=== PATIENT | female | born 1970 | race Caucasian/White ===

== ENCOUNTER 2022-05-30 08:44 | Outpatient (CLI) | payer OTHER, SELFPAY ==
[2022-05-30 11:32] LABS: Albumin* 4.7 g/dL (3.3-5.0); Chloride* 105 mmol/L (96-114); Sodium* 138 mmol/L (135-149)
[2022-05-30 11:33] LABS: Potassium* 4.4 mmol/L (3.6-5.1)
[2022-05-30 11:35] LABS: Alanine Aminotransferase* 16 U/L (4-35); Alkaline Phosphatase* 48 U/L (40-150); Aspartate Amino Transferase* 20 U/L (12-35); Bilirubin Total* 0.6 mg/dL (0.1-1.5); Blood Urea Nitrogen* 13 mg/dL (7-30); Carbon Dioxide* 25 mmol/L (20-32); Creatinine* 0.5 mg/dL (0.5-1.5); Estimated Glomerular Filt Rate 113 ml/min; Glucose* 87 mg/dL (60-115); Total Protein* 7.1 g/dL (6.0-8.3)
[2022-05-30 11:36] LABS: Calcium* 9.3 mg/dL (8.4-10.6)
[2022-05-30 12:08] LABS: Vitamin B12* 243 pg/mL (243-894)
[2022-05-30 12:16] LABS: Vitamin D 25 Hydroxy* 25 ng/mL (30-80)
== END 2022-05-30 08:45 | disposition home or self-care (01) ==
PROVIDERS: PCP Obstetrics & Gynecology; Visit Provider Obstetrics & Gynecology
DX: Z13.21 Encounter for screening for nutritional disorder (principal); Z13.228 Encounter for screening for other metabolic disorders; Z13.0 Encounter for screening for diseases of the blood and blood-forming organs and certain disorders involving the immune mechanism
CPT/HCPCS: 80053; 82306; 82607

== ENCOUNTER 2022-08-05 14:39 | Outpatient (CLI) | payer OTHER, SELFPAY ==
--- NOTE | 2022-08-05 14:40 | CRLHL7_ITS ---
For Patients: As a result of the Century Cures Act, medical imaging exams and procedure reports are released immediately into your electronic medical record. You may view this report before your referring provider. If you have questions, please contact your health care provider. BILATERAL SCREENING MAMMOGRAM WITH COMPUTER-AIDED DETECTION TECHNIQUE: CC and MLO views were obtained. These mammographic images have been obtained using full-field digital technique. These mammographic images were interpreted with the benefit of computer-aided detection. COMPARISON FILM: 07/22/21, 06/30/20, 06/10/19. FINDINGS: The breasts are heterogeneously dense, which may obscure small masses IMPRESSION: There is no radiographic evidence for malignancy. ASSESSMENT: BI-RADS Category 1: Negative RECOMMENDATION: Routine screening mammogram in 1 year. A lay language report of this examination will be provided to the patient. Adam Tenorio M.D. Diagnostic Radiologist [email or web address] Transcribed: 1:39 p.phani rosario/Dictated by: Adam Tenorio MD @ 08/08/2022 9:11:00 AM (Electronically Signed)
== END 2022-08-05 14:40 | disposition home or self-care (01) ==
LOC: MAMMO 14:41
PROVIDERS: PCP Obstetrics & Gynecology; Visit Provider Obstetrics & Gynecology
DX: Z12.31 Encounter for screening mammogram for malignant neoplasm of breast (principal); R92.2 Inconclusive mammogram
CPT/HCPCS: 77067

== ENCOUNTER 2022-08-08 12:17 | Day surgery (SDC) | payer OTHER, SELFPAY ==
[2022-08-08] MEDS: LACTATED RINGERS 1000 ML 1,000 ML 100 ML IV (12:40)
[2022-08-08] MEDS: SODIUM CHLORIDE 0.9 % (FLUSH) 10 ML SYRINGE IVF (12:40)
[2022-08-08 12:46] VITALS: BP 144/81; PULSE 85; RESP 16; TEMP 36.6; O2SAT 100; BMI 21.9
--- NOTE | 2022-08-08 12:50 | SUR.PREOP ---
Patient provided home covid negative results to RN.
--- NOTE | 2022-08-08 13:30 | CRLHL7_ITS ---
For Patients: As a result of the Century Cures Act, medical imaging exams and procedure reports are released immediately into your electronic medical record. You may view this report before your referring provider. If you have questions, please contact your health care provider. Indication: left Cheilectomy 1st MPJ Technique: Two fluoroscopic images of the left foot. Fluoroscopic time 7.5 seconds. IMPRESSION: Fluoroscopic guidance for chilectomy. Dictated by Adam Tenorio MD @ 08/08/2022 3:55:19 PM (Electronically Signed)
[2022-08-08] MEDS: CEFAZOLIN 1 GM inj IVP (13:36)
[2022-08-08] MEDS: BUPIVACAINE 0.5% 30 ML INJECTION (13:45)
[2022-08-08 14:41] VITALS: BP 105/67; PULSE 81; RESP 14; TEMP 36.8; O2SAT 99
--- NOTE | 2022-08-08 14:43 | W.ANESCHARGE ---
Anesthesia Charges Start Date/Time Anesthesia Start Date: 08/08/22 Anesthesia Start Time: 13:33 Stop Date/Time Anesthesia Stop Date: 08/08/22 Anesthesia Stop Time: 14:44 Summary Emergency: No
[2022-08-08 14:45] VITALS: BP 110/68; PULSE 82; RESP 14; O2SAT 100
--- NOTE | 2022-08-08 14:45 | W.ANESCHARGE ---
Anesthesia Charges Start Date/Time Anesthesia Start Date: 08/08/22 Anesthesia Start Time: 13:33 Stop Date/Time Anesthesia Stop Date: 08/08/22 Anesthesia Stop Time: 14:44 Summary Emergency: No
[2022-08-08 15:00] VITALS: BP 127/81; PULSE 76; RESP 16; O2SAT 99
[2022-08-08 15:15] VITALS: BP 140/85; PULSE 75; RESP 16; O2SAT 100
--- NOTE | 2022-08-08 15:19 | PM.GSPRC ---
Operative Note Date of procedure: 08/08/22 Pre-op diagnosis: Hallux rigidus left Post-op diagnosis: Hallux rigidus left Type of Procedure: Cheilectomy 1st MPJ left Indications: Patient is in clinic for ongoing 1st MPJ pain. She has underlying arthritic changes throughout the joint. She has failed outpatient conservative care and wishes to proceed with surgical intervention. I reviewed the procedure, recovery, expectations and potential complications. These include but are not limited to: Poor wound healing, infection, nerve injury, potentially future surgery, continued pain, swelling, stiffness, deep venous thrombosis, pulmonary embolism and possible . She understands risks written consent was obtained. Procedure Description: After discussing the risks and benefits of the procedure, the patient signed informed consent.? The operative site was marked and the patient was brought to the operating room and placed on the operating table in supine position.? Care was taken to pad the patient's pressure points.?? The patient was then given sedation by anesthesia.?? The operative site was then prepped and draped in the usual sterile fashion.? A time-out was then performed. The left foot was exsanguinated. Ankle tourniquet was inflated to 250 mm Hg. Dorsomedial incision was made over the 1st metatarsophalangeal joint left foot. Incision was carried down through skin and subcutaneous tissues. Blunt dissection was carried down to the joint capsule. Linear capsular incision was made and capsular tissue reflected away from the 1st metatarsophalangeal joint. One loose body approximately 2 mm was noted and removed from the joint. There was significant bony spurring both the base of the proximal phalanx and head of the 1st metatarsal. There is approximately 50% cartilage loss to both the metatarsal head and proximal phalangeal base. On the metatarsal head the lateral 50% was lost dorsal to plantar. On the proximal phalanx similar pattern with 50% loss to the lateral aspect dorsal to plantar. Sagittal saw was then used to resect the dorsal medial and lateral bony prominences from the 1st metatarsal head. A rongeur was used to remove the dorsal bony overhang from the proximal phalangeal base dorsal, medial and lateral. A rotary bur was then used to remodel both the 1st metatarsal head and proximal phalangeal base. Wound was thoroughly irrigated normal sterile saline. Repeat x-rays demonstrated adequate resection of the enlarged bone and spurring. First MPJ had a very nice gliding motion with no crepitus or catching at this point. We thoroughly irrigated normal sterile saline. Capsular tissue was then repaired with 3-0 Vicryl. Subcutaneous tissues reapproximated 4-0 Monocryl and skin closed with 4-0 Prolene. Sterile dressings were then applied. Tourniquet was released normal capillary fill time returned to all digits. ? The patient was then woken and transported to the recovery area in stable condition. The patient tolerated the procedure well. She was discharged per Anesthesia. She is given both written and verbal postop instructions. She will be fitted with a postsurgical shoe and she has crutches Tylenol, ibuprofen and oxycodone for pain. She will follow-up in 2 days. She will start aspirin therapy tomorrow. Findings: 50% loss of cartilage the 1st MPJ. Complications: None apparent Implants: None Anesthesia: MAC and local Surgeon: Gabriel Leon DPM Estimated blood loss (mL): 5 Disposition: same day
--- NOTE | 2022-08-08 15:25 | SUR.PHASEII ---
Pt tolerated water, did not care for anything to eat.
[2022-08-08 15:40] VITALS: BP 148/92; PULSE 71; RESP 16; TEMP 36.5; O2SAT 100
--- NOTE | 2022-08-08 15:45 | SUR.PHASEII ---
pt and family member acknowledged discharge instructions and verbalized readiness to be discharged home.
== END 2022-08-08 15:44 | disposition home or self-care (01) ==
PROVIDERS: PCP Obstetrics & Gynecology; Visit Provider Podiatrist
PROC: (CPT 28289; principal; 2022-08-08 13:30)
DX: M20.22 Hallux rigidus, left foot (principal)
CPT/HCPCS: 28289; 01480; 73620; 76000; 84703; J0690; J2250; J2370; J2405; J2704; J3010; J3490; J7120

== ENCOUNTER 2023-06-10 08:44 | Outpatient (CLI) | payer OTHER, SELFPAY | END 2023-06-10 08:45 | disposition home or self-care (01) | LOC: NFLDREF 06-14 05:34 | PROVIDERS: PCP Obstetrics & Gynecology; Referring Provider Obstetrics & Gynecology; Visit Provider Family Medicine | DX: R30.0 Dysuria (principal); N39.0 Urinary tract infection, site not specified | CPT/HCPCS: 87086; 87186 ==

== ENCOUNTER 2023-09-29 15:47 | Observation (INO) | payer OTHER, SELFPAY ==
[2023-09-29 15:54] VITALS: BP 156/91; PULSE 101; TEMP 36.4; O2SAT 99; BMI 22.3
--- NOTE | 2023-09-29 16:07 | ED_ITS ---
HPI - General Adult General Time Seen by Provider: 16:07 Date Seen: 09/29/23 Chief complaint: Abdominal Pain Stated complaint: GI issues-ref by PCP-vomit, diarrhea Time Seen by Provider: 09/29/23 16:04 Source: patient, RN notes reviewed and old records reviewed Mode of arrival: ambulatory Limitations: no limitations History of Present Illness HPI narrative: 52-year-old female who presents today with nausea, vomiting, diarrhea. This is been going on for 4 days. Patient has various food allergies that presents similarly to this but no exposure to any of her known allergens. She had 2 days of diarrhea but none since, continued nausea and some upper abdominal pain. She has had similar episodes to this two other times in the last couple of months, the other resolved after 2-3 days. And she has some chills and feels little mentally foggy with some lightheadedness, no chest pain or shortness of breath. Denies urinary symptoms. No blood in the stools. Called GI clinic to make appointment and was directed to the emergency room. Related Data Previous Rx's Medication Instructions Recorded progesterone micronized 200 mg 200 mg PO QDAY #90 caps 03/21/22 capsule estradiol 0.1 mg/24 hr semiweekly 1 patch transdermal 2XW #8 ea 03/28/22 transdermal patch progesterone micronized 200 mg 200 mg PO QHS #30 caps 09/11/23 capsule estradiol 0.1 mg/24 hr semiweekly 1 patch transdermal 2XW #24 ea 09/18/23 transdermal patch Allergies Allergy/AdvReac Type Severity Reaction Status Date / Time butorphanol [From Stadol] Allergy Severe Dizziness Verified 09/29/23 16:47 & Nausea pear AdvReac Intermediate Verified 09/29/23 16:47 banana AdvReac Verified 09/29/23 16:47 yellow jacket Allergy Severe Uncoded 09/29/23 16:47 Bee venom Allergy Mild Uncoded 09/29/23 16:47 melons Allergy Uncoded 09/29/23 16:47 AVACADO,BANANNA,PEAR AdvReac Mild Uncoded 09/29/23 16:47 avacado AdvReac Uncoded 09/29/23 16:47 [facility] Medical History (Updated 09/29/23 @ 18:59 by Bud Joseph MD) Hormone replacement therapy ?Z79.890 - Hormone replacement therapy (ICD-10) Vasomotor symptoms due to menopause (~05/2020) ?N95.1 - Menopausal and female climacteric states (ICD-10) Labile mood (~01/2021) ?R45.86 - Emotional lability (ICD-10) Insomnia (~2019) ?G47.00 - Insomnia, unspecified (ICD-10) History of abnormal cervical Papanicolaou smear (~2007) ?Z87.42 - Personal history of other diseases of the female genital tract (ICD-10) Alopecia (~01/2021) ?L65.9 - Nonscarring hair loss, unspecified (ICD-10) Surgical History (Updated 08/03/22 @ 15:50 by Genevieve Watts MD) History of female sterilization (01/30/13) ?Z98.890 - Other specified postprocedural states (ICD-10) Status post laparoscopic cholecystectomy (04/2001) ?Z90.49 - Acquired absence of other specified parts of digestive tract (ICD- 10) History of low transverse section (04/17/20) ?Z98.891 - History of uterine scar from previous surgery (ICD-10) Family History (Updated 03/21/22 @ 12:41 by Tammy Quinn~SALES ADMINISTRATION SPECIALIST) Mother Osteoporosis Heart disease High blood pressure Father Family history of nonleukemic malignant neoplasm of lymphatic system Alcohol abuse Nonmelanoma skin cancer Drug dependence Maternal Grandmother Heart disease Social History Smoking Status: Never smoker How often do you have a drink containing alcohol: 2-4 times a month AUDIT-C Alcohol total score: 2 Non-prescribed substance use: denies use Caffeine: Yes Exam Narrative: Exam Narrative: General: Well-developed and well-nourished, no acute distress Head: Atraumatic and normocephalic Eyes: Pupils are equal reactive, extraocular motions intact, conjunctiva clear ENT: External nose and ears are normal, posterior pharynx without erythema or exudate Neck: No midline cervical tenderness, full spontaneous range of motion the neck, trachea midline, no adenopathy Heart: Regular rate and rhythm no murmurs or thrills Lungs: Clear to auscultation bilaterally without wheezes or crackles Abdomen: Soft, mild upper abdominal tenderness, nondistended with active bowel sounds Musculoskeletal: No tenderness, deformity, or edema Neurologic: Awake, alert, and oriented x3, no gross focal neurologic deficits, cranial nerves intact as tested Psych: Mood and affect are appropriate Skin: No rashes Const: Vital Signs, click to edit/add: Vital Signs - 24 hr 09/29/23 15:54 Temperature 97.5 F L Pulse Rate [Pulse Oximeter] 101 H Blood Pressure [Ri ght Upper Arm] 156/91 H Pulse Oximetry 99 Oxygen Delivery Me thod Room Air Course Course ED Course: Patient seen examined, prior records reviewed. Patient presents with 4 days of nausea, vomiting, diarrhea. Says it feels similar to before she had her gallbladder out to and also cysts and is similar to when she has had reactions to foods. On exam here, tachycardic, appears comfortable, minimal upper abdominal tenderness. Labs ordered as well as CT scan of the abdomen and pelvis, fluids, Zofran. Reevaluation(s) Time of Reevaluation #1: 17:30 Reevaluation #1: Labs ordered and independently interpreted by me with normal CBC, normal hepatic panel, normal basic metabolic panel. CRP is slightly elevated at 6.2, lipase is normal. CT scan of the abdomen pelvis independently interpreted by me with a right renal cyst, inflammatory changes in the right pelvis but no definite etiology for this. Time of Reevaluation #2: 18:35 Reevaluation #2: Radiology interpretation of CT scan with possible ruptured appendicitis. Patient re-examined, mild RLQ tenderness. Care discussed with Dr. Su, general surgery who will review. Time of Reevaluation #3: 18:55 Reevaluation #3: Care discussed with Dr. Su, general surgery. Recommends IV antibiotics and admission, clear liquid diet, also requests pelvic ultrasound to evaluate the right ovary and see if there is another source of possible inflammatory changes in the pelvis. Care discussed with Dr. Bhatia hospitalist for admission, Zosyn ordered. Vital Signs Vital signs: Initial Vital Signs Temperature 97.5 F L 09/29/23 15:54 Temperature Source Temporal Artery Scan 09/29/23 15:54 Pulse Rate 101 H 09/29/23 15:54 Blood Pressure 156/91 H 09/29/23 15:54 Blood Pressure Mean 112 H 09/29/23 15:54 Blood Pressure Position Sitting 09/29/23 15:54 Pulse Oximetry 99 09/29/23 15:54 Oxygen Delivery Method Room Air 09/29/23 15:54 Vital Signs Temperature 97.5 F L 09/29/23 15:54 Pulse Rate 101 H 09/29/23 15:54 Blood Pressure 156/91 H 09/29/23 15:54 Pulse Oximetry 99 09/29/23 15:54 Oxygen Delivery Method Room Air 09/29/23 15:54 Temperature 97.5 F L 09/29/23 15:54 Pulse Rate 101 H 09/29/23 15:54 Blood Pressure 156/91 H 09/29/23 15:54 Pulse Oximetry 99 09/29/23 15:54 Oxygen Delivery Method Room Air 09/29/23 15:54 Medications Administered Medications: Generic Name Dose Route Start Last Admin Trade Name Freq PRN Reason Stop Dose Admin Piperacillin Sod/Tazobactam 100 mls @ 100 mls/hr 09/29/23 18:57 09/29/23 19:43 Sod 3.375 gm/ Sodium Chloride IVPB 09/29/23 18:58 Infused ONCE ONE Infusion Discontinued Medications Generic Name Dose Route Start Last Admin Trade Name Freq PRN Reason Stop Dose Admin Sodium Chloride 1,000 mls @ 1,000 mls/hr 09/29/23 16:30 09/29/23 19:13 0.9 % Sodium Chloride 1000 Ml IV 09/29/23 17:29 Infused .Q1H MERRITT Infusion Ondansetron HCl 4 mg 09/29/23 16:16 09/29/23 16:43 Ondansetron 2 Mg/Ml Inj IVP 09/29/23 16:17 4 mg ONCE ONE Administration Medical Decision Making Lab Data Labs: Lab Results 09/29/23 Range/Units 16:40 WBC 7.36 (4.50-11.00) K/uL RBC 4.00 (4.00-5.20) m/uL Hgb 12.7 (12.0-16.0) gm/dL Hct 36.6 (33.0-51.0) % MCV 92 (80-100) fL MCH 32 (26-34) pg MCHC 35 (32-36) gm/dL RDW Coeff of Jennifer 11.5 (11.5-15.5) % Plt Count 271 (140-440) K/uL Neut % (Auto) 70.1 (42.0-72.0) % Lymph % (Auto) 22.0 (20-44) % [place] % (Auto) 6.7 (0.0-11.0) % Eos % (Auto) 1.0 (0.0-7.0) % Baso % (Auto) 0.1 (0.0-3.0) % Neut # (Auto) 5.16 (1.7-7.0) K/uL Lymph # (Auto) 1.62 (0.90-2.90) K/uL [place] # (Auto) 0.50 (0.00-0.90) K/UL Eos # (Auto) 0.07 (0.00-0.50) K/uL Baso # (Auto) 0.01 (0.00-0.30) K/uL Abs Immat Gran (auto) 0.01 (0.00-0.30) K/uL Imm/Tot Granulo (auto) 0.1 % Sodium 136 (135-149) mmol/L Potassium 3.6 (3.6-5.1) mmol/L Chloride 104 (96-114) mmol/L Carbon Dioxide 25 (20-32) mmol/L Anion Gap 7 (7-15) mEq/L BUN 14 (7-30) mg/dL Creatinine 0.4 L (0.5-1.5) mg/dL Estimated Creat Clear 134.55 Estimated GFR 118 ml/min Glucose 109 (60-115) mg/dL Lactate 0.7 (0.5-1.9) mmol/L Calcium 9.4 (8.4-10.6) mg/dL Magnesium 2.2 (1.5-2.6) mg/dL Total Bilirubin 0.4 (0.1-1.5) mg/dL Direct Bilirubin 0.2 (0.0-0.5) mg/dL AST 18 (12-35) U/L ALT 14 (4-35) U/L Alkaline Phosphatase 50 (40-150) U/L C-Reactive Protein 6.2 H (0.5-1.0) mg/dL Total Protein 7.3 (6.0-8.3) g/dL Albumin 4.1 (3.3-5.0) g/dL Lipase 83 (23-300) U/L Discharge Plan Discharge Clinical Impression: Nausea vomiting and diarrhea, Abdominal pain Patient Disposition: Admitted As Observation
--- NOTE | 2023-09-29 16:17 | CT_ITS ---
Patient: MOY CORONADO Facility:?[facility] Patient ID:?[id number] Site Patient ID:?[id number]. Site :?[id number] Study:?CT-Abdomen/Pelvis W/62CC [id number]/22/2024 5:01:35 PM Ordering Physician:JAMES Final Report: INDICATION: NAUSEA , VOMITING, DIARRHEA CT ABDOMEN AND PELVIS WITH CONTRAST TECHNIQUE: Multidetector CT imaging was performed through the abdomen and pelvis following intravenous contrast administration using 62 mL Isovue 370. Coronal and sagittal reconstructions were generated. COMPARISON: None. FINDINGS: Lower chest: Trace basilar lung atelectasis. Liver: Unremarkable aside from tiny hypodensity in the dome of the liver on image 13 of series 2 which is too small to characterize but likely benign. Gallbladder and bile ducts: Status post cholecystectomy. No biliary dilation identified. Pancreas: Unremarkable. Spleen: Normal. Adrenals: No nodules or masses. Kidneys, ureters, and urinary bladder: 3.5 centimeter right renal cyst. No hydronephrosis. No bladder mass or definite wall thickening. Gastrointestinal tract and peritoneum: Normal caliber small bowel and colon without wall thickening or obstruction. Images 95-110 of series 2 show an inflammatory process in the low right lower quadrant posterior to the cecum, consistent with a phlegmon. The appendix is not clearly identified but acute appendicitis is suspected as the etiology of the inflammatory changes. The inflammation is greater than typically seen with uncomplicated appendicitis, and perforated or ruptured appendicitis is a consideration. No drainable abscess collection is demonstrated. No free air is identified. Vascular structures: Normal for age. Lymph nodes: No pathologically enlarged nodes identified. Reproductive organs: Essure implants. No adnexal masses. Bones: Normal for age. IMPRESSION: 1. Severe inflammatory changes in the right lower quadrant as detailed above, favored to represent acute appendicitis, possibly ruptured. 2. Nonacute additional findings as detailed above. BETSEY SPRINGER MD [facility] Dictated by Romel Springer MD @ 09/29/2023 6:33:07 PM Please note that all CT scans at this facility use dose modulation, iterative reconstruction, and/or weight-based dosing when appropriate to reduce radiation dose to as low as reasonably achievable. Dictated by: Romel Springer MD @ 09/29/2023 18:33:53 Signed by:?Romel Springer MD @09/29/2023 6:33:53 PM (Electronic Signature)
[2023-09-29] MEDS: 0.9 % SODIUM CHLORIDE 1000 ml 1,000 ML IV (16:43)
[2023-09-29] MEDS: ONDANSETRON 2 MG/ML inj 4 MG IVP (16:43)
[2023-09-29 16:47] LABS: Lactate* 0.7 mmol/L (0.5-1.9)
[2023-09-29 16:48] LABS: Basophils Absolute Auto 0.01 K/uL (0.00-0.30); Basophils Percent Auto 0.1 % (0.0-3.0); Eosinophils Absolute Auto 0.07 K/uL (0.00-0.50); Hematocrit 36.6 % (33.0-51.0); Hemoglobin* 12.7 gm/dL (12.0-16.0); Immature Granulocytes Abs Auto 0.01 K/uL (0.00-0.30); Immature Granulocytes Pct Auto 0.1 %; Lymphocytes Absolute Auto 1.62 K/uL (0.90-2.90); Mean Corpuscular HGB Conc 35 gm/dL (32-36); Mean Corpuscular Hemoglobin 32 pg (26-34); Mean Corpuscular Volume 92 fL (80-100); Monocytes Percent Auto 6.7 % (0.0-11.0); Neutrophils Absolute Auto 5.16 K/uL (1.7-7.0); Neutrophils Percent Auto 70.1 % (42.0-72.0); Platelet Count* 271 K/uL (140-440); RDW Coefficient of Variation % 11.5 % (11.5-15.5); White Blood Count* 7.36 K/uL (4.50-11.00)
[2023-09-29 16:50] LABS: Slide Review Reflex No
[2023-09-29 17:08] LABS: Albumin* 4.1 g/dL (3.3-5.0); Chloride* 104 mmol/L (96-114)
[2023-09-29 17:09] LABS: Potassium* 3.6 mmol/L (3.6-5.1); Sodium* 136 mmol/L (135-149)
[2023-09-29 17:11] LABS: Alkaline Phosphatase* 50 U/L (40-150); Anion Gap 7 mEq/L (7-15); Aspartate Amino Transferase* 18 U/L (12-35); Bilirubin Direct* 0.2 mg/dL (0.0-0.5); Bilirubin Total* 0.4 mg/dL (0.1-1.5); Carbon Dioxide* 25 mmol/L (20-32); Creatinine* 0.4 mg/dL (0.5-1.5); Est. Creatinine Clearance* 134.55; Estimated Glomerular Filt Rate 118 ml/min; Total Protein* 7.3 g/dL (6.0-8.3)
[2023-09-29 17:12] LABS: Alanine Aminotransferase* 14 U/L (4-35); Blood Urea Nitrogen* 14 mg/dL (7-30); Calcium* 9.4 mg/dL (8.4-10.6); Glucose* 109 mg/dL (60-115); Lipase* 83 U/L (23-300); Magnesium* 2.2 mg/dL (1.5-2.6)
[2023-09-29 17:14] LABS: C Reactive Protein* 6.2 mg/dL (0.5-1.0)
--- NOTE | 2023-09-29 18:59 | US_ITS ---
Patient: MOY CORONADO Facility:?[facility] Patient ID:?[id number] Site Patient ID:?[id number]. Site :?[id number] Study:?US-Pelvis PELVIS TA & TV-09/29/2023 8:35:18 PM Ordering Physician:?DR. DWYER Final Report: INDICATION: Abdominal pain. Abnormal CT exam. TECHNIQUE: Ultrasound pelvis transabdominal and transvaginal for better assessment or to better visualize the endometrium. Real-time sonographic images with spectral and color Doppler imaging of the ovaries were obtained. COMPARISON: CT abdomen pelvis September 29, 2023. FINDINGS: Uterus: 9 x 5 x 4 cm. Normal echotexture of the myometrium. No masses. Endometrium: Transvaginal imaging was performed to better evaluate the endometrium. Endometrial thickness measures 3 mm. No sign of endometrial mass or fluid. Right ovary 2 x 2 x 1 cm. Left ovary 2 x 2 x 1 cm. No ovarian or adnexal masses. Normal arterial and venous blood flow is demonstrated in both ovaries. Cul-de-sac: No significant free fluid. A structure in the right lower quadrant appears to be an edematous appendix. IMPRESSION: Appendicitis is suspected in the right lower quadrant. Otherwise normal pelvic ultrasound. Dictated by Jorge L Brady MD @ 09/29/2023 8:53:30 PM Signed by:?Jorge L Brady MD @09/29/2023 8:53:30 PM (Electronic Signature)
[2023-09-29] MEDS: PIPERACILLIN/TAZOBACTAM 3.375 GM in 0.9 % SODIUM CHLORIDE Mini-bag 100 ML IVPB (19:26)
[2023-09-29 19:49] LABS: Lab Add On Test New Spec Needed
--- NOTE | 2023-09-29 19:52 | P.IMHP_ITS ---
Hospitalist- H&P: HPI History of Present Illness Date Seen: 09/29/23 Chief complaint: GI issues-ref by PCP-vomit, diarrhea Narrative: Edilma Shabazz is a 52 year old female presents with a 4 day history of abdominal pain, vomiting, diarrhea/loose stools, lightheadedness, diaphoresis. Symptoms started on Monday night and awoke her from sleep. She has not had any blood in her emesis or stool. She is not aware of a fever though she has felt diaphoretic at times. She thinks she has been getting better in the last few days. She came to the emergency department because she called the clinic to arrange an appointment and they referred her here. She has had no urinary symptoms. She reports that she has had similar episodes to this for 3 days in May and 2 days in June. On both those occasions her symptoms came on without obvious trigger such as food allergy and resolved without her intervention. She expected this would be a similar episode as she was already getting better. She reports the abdominal pain is both epigastric bloating as well as some persistent right lower quadrant discomfort. Previously had a cholecystectomy. In 2012 she had Essure implants in her fallopian tubes. She has she has had a . No appendectomy. She reports that the symptoms she is having now are similar to the symptoms that she had before her cholecystectomy. She reports her symptoms are also similar to the symptoms she gets when she eats pairs or avocado or banana, foods that she is allergic to. Between the episodes that she has had she reports generally doing well she has somewhat irregular bowel function with a tendency towards constipation. She is careful to avoid bananas avocados and pairs she is not aware of any other food allergies. Review of Systems Narrative: She reports other than issues above she has been generally healthy [facility] Medical History Hormone replacement therapy ?Z79.890 - Hormone replacement therapy (ICD-10) Vasomotor symptoms due to menopause (~05/2020) ?N95.1 - Menopausal and female climacteric states (ICD-10) Labile mood (~01/2021) ?R45.86 - Emotional lability (ICD-10) Insomnia (~2019) ?G47.00 - Insomnia, unspecified (ICD-10) History of abnormal cervical Papanicolaou smear (~2007) ?Z87.42 - Personal history of other diseases of the female genital tract (ICD-10) Alopecia (~01/2021) ?L65.9 - Nonscarring hair loss, unspecified (ICD-10) Surgical History History of female sterilization (01/30/13) ?Z98.890 - Other specified postprocedural states (ICD-10) Status post laparoscopic cholecystectomy (04/2001) ?Z90.49 - Acquired absence of other specified parts of digestive tract (ICD- 10) History of low transverse section (04/17/20) ?Z98.891 - History of uterine scar from previous surgery (ICD-10) Family History Mother Osteoporosis Heart disease High blood pressure Father Family history of nonleukemic malignant neoplasm of lymphatic system Alcohol abuse Nonmelanoma skin cancer Drug dependence Maternal Grandmother Heart disease Social History (Updated 09/29/23 @ 19:59 by Chuck Bhatia MD) Narrative: She lives in [place] with her . 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 She does not smoke. She has 4 glasses of wine per week. Smoking Status: Never smoker How often do you have a drink containing alcohol: 2-4 times a month AUDIT-C Alcohol total score: 2 Non-prescribed substance use: denies use Caffeine: Yes Meds Home Medications and Allergies Allergies Allergy/AdvReac Type Severity Reaction Status Date / Time butorphanol [From Stadol] Allergy Severe Dizziness Verified 09/29/23 16:47 & Nausea pear AdvReac Intermediate Verified 09/29/23 16:47 banana AdvReac Verified 09/29/23 16:47 yellow jacket Allergy Severe Uncoded 09/29/23 16:47 Bee venom Allergy Mild Uncoded 09/29/23 16:47 melons Allergy Uncoded 09/29/23 16:47 AVACADO,BANANNA,PEAR AdvReac Mild Uncoded 09/29/23 16:47 avacado AdvReac Uncoded 09/29/23 16:47 Exam Narrative: Exam Narrative: She is alert and appears in no distress. She gives her own history. Eyes normal. Oropharynx normal. Neck is supple without mass or adenopathy. Respirations are clear to auscultation. Cardiovascular: S1, S2, regular rate and rhythm. No murmur gallop or rub. Abdomen: Bowel sounds are present. Abdomen is soft. She has mild right lower quadrant tenderness. No peritonitis. No mass. She has no tenderness with palpation over her back. Extremities with intact pulses and no edema. No rash. Const: Vital Signs, click to edit/add: Vital Signs - 24 hr 09/29/23 15:54 Temperature 97.5 F L Pulse Rate [Pulse Oximeter] 101 H Blood Pressure [Ri ght Upper Arm] 156/91 H Pulse Oximetry 99 Oxygen Delivery Me thod Room Air Documenting provider has reviewed patient's vital signs: yes Hospitalist - H&P: Result Labs Labs: Short CBC 09/29/23 Range/Units 16:40 WBC 7.36 (4.50-11.00) K/uL Hgb 12.7 (12.0-16.0) gm/dL Hct 36.6 (33.0-51.0) % Plt Count 271 (140-440) K/uL BMP 09/29/23 16:40 Sodium 136 Potassium 3.6 Chloride 104 Carbon Dioxide 25 BUN 14 Creatinine 0.4 L Glucose 109 Calcium 9.4 Liver Function 09/29/23 Range/Units 16:40 Total Bilirubin 0.4 (0.1-1.5) mg/dL Direct Bilirubin 0.2 (0.0-0.5) mg/dL AST 18 (12-35) U/L ALT 14 (4-35) U/L Alkaline Phosphatase 50 (40-150) U/L Albumin 4.1 (3.3-5.0) g/dL Imaging CT scan - abdomen: Radiologist's impression: Patient: EDILMA SHABAZZ Facility:?[facility] Patient ID:?[id number] Site Patient ID:?[id number]. Site :?[id number] Study:?CT Abdomen/Pelvis W/62CC [id number] 5:01:35 PM Ordering Physician:JAMES Final Report: INDICATION: NAUSEA , VOMITING, DIARRHEA CT ABDOMEN AND PELVIS WITH CONTRAST TECHNIQUE: Multidetector CT imaging was performed through the abdomen and pelvis following intravenous contrast administration using 62 mL Isovue 370. Coronal and sagittal reconstructions were generated. COMPARISON: None. FINDINGS: Lower chest: Trace basilar lung atelectasis. Liver: Unremarkable aside from tiny hypodensity in the dome of the liver on image 13 of series 2 which is too small to characterize but likely benign. Gallbladder and bile ducts: Status post cholecystectomy. No biliary dilation identified. Pancreas: Unremarkable. Spleen: Normal. Adrenals: No nodules or masses. Kidneys, ureters, and urinary bladder: 3.5 centimeter right renal cyst. No hydronephrosis. No bladder mass or definite wall thickening. Gastrointestinal tract and peritoneum: Normal caliber small bowel and colon without wall thickening or obstruction. Images 95-110 of series 2 show an inflammatory process in the low right lower quadrant posterior to the cecum, consistent with a phlegmon. The appendix is not clearly identified but acute appendicitis is suspected as the etiology of the inflammatory changes. The inflammation is greater than typically seen with uncomplicated appendicitis, and perforated or ruptured appendicitis is a consideration. No drainable abscess collection is demonstrated. No free air is identified. Vascular structures: Normal for age. Lymph nodes: No pathologically enlarged nodes identified. Reproductive organs: Essure implants. No adnexal masses. Bones: Normal for age. IMPRESSION: 1. Severe inflammatory changes in the right lower quadrant as detailed above, favored to represent acute appendicitis, possibly ruptured. 2. Nonacute additional findings as detailed above. Assessment and Plan Assessment and plan (1) Abdominal pain: Problem comment: Patient presents with a complex picture of 4 days of abdominal pain nausea vomiting and diarrhea which could be a chronic recurrent problem. She does not appear to be particularly ill though her CT scan is significantly abnormal with inflammatory changes in the right lower quadrant. Considerations include a ruptured appendix, other abscess or inflammatory process, tubo-ovarian problem, inflammatory bowel disease. Surgical consult is requested. Tonight will initiate antibiotic with piperacillin tazobactam. Obtain ultrasound of the pelvis. Status: Acute (2) Nausea vomiting and diarrhea: Problem comment: Cause uncertain but likely related to abdominal pain and possibly chronic recurrent problem. Status: Acute Plan Patient is admitted to the hospital for IV antibiotics, surgical consultation and repeat assessment. Total Time Spent Total Time Spent: Total time spent is 60 minutes, 40 minutes in coordination of care and discussing with patient other providers ongoing evaluation management of right lower quadrant abdominal pain and inflammatory changes seen on CT
[2023-09-29 20:42] VITALS: BP 138/88; PULSE 97; RESP 16; TEMP 36.6; O2SAT 100; BMI 22.5
[2023-09-29] MEDS: LACTATED RINGERS 1000 ML 1,000 ML 125 ML IV (21:15)
[2023-09-29] MEDS: SODIUM CHLORIDE 0.9 % (FLUSH) 10 ML SYRINGE 5 ML IVF (21:16)
[2023-09-29] MEDS: MELATONIN 3 MG TABLET PO (22:09)
[2023-09-29] MEDS: ACETAMINOPHEN 325 MG TABLET 650 MG PO (22:11)
[2023-09-29 23:00] VITALS: BP 126/71; PULSE 76; PULSE 97; RESP 16; TEMP 36.2; O2SAT 97
[2023-09-30] MEDS: ONDANSETRON 2 MG/ML inj 4 MG IVP (01:04)
[2023-09-30] MEDS: PIPERACILLIN/TAZOBACTAM 3.375 GM in 0.9 % SODIUM CHLORIDE Mini-bag 100 ML IVPB ×2 (01:06→06:53)
[2023-09-30 03:00] VITALS: BP 131/79; PULSE 82; RESP 16; TEMP 36.6; O2SAT 98
[2023-09-30] MEDS: LACTATED RINGERS 1000 ML 1,000 ML 125 ML IV (04:56)
--- NOTE | 2023-09-30 06:46 | PC.NURSE ---
End of shift [id number]: Pt arrived to the unit at 2030 from the ED. She is A&O x4, afebrile and VSS. Pt is independent in her room. She comes from home with her . Presented to ED per GI clinic d/t no appts available. She had c/o worsening abdominal pain, N/V and diarrhea x4 days with no appetite. Pt reported her last BM was 09/25. Abdominal US showed appendicitis with possible rupture. General surgery was consulted and will evaluate patient today. PIV in left AC infusing LR @ 125 mL/hr. IV Zosyn scheduled q6H per SEP. Pt has been NPO since 2199 for appendectomy time unknown. Reports RLQ tenderness when pressure is applied, rates it 2-4/10. Pain was resolved with PRN Tylenol x1 dose last given @ 2209. Pt had mild nausea overnight reports it ?mid abdomen bubbly feeling? in which PRN Zofran relieved, last dose given @ 104. She has an estrogen patch on her RLQ.?
[2023-09-30 06:59] LABS: HCG Qualitative Serum* Negative (Negative)
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
[2023-09-30 08:13] VITALS: BP 116/72; PULSE 77; RESP 16; TEMP 36.9; O2SAT 100
[2023-09-30] MEDS: AMOXICILLIN/CLAVULANATE 875 mg/125 mg TABLET PO (09:48)
--- NOTE | 2023-09-30 11:01 | PC.NURSE ---
shift note: vss stable. pt denies pain at this time. pt stated her abd felt slightly distended. pt passing flatus. BS active x4. Pt tolerating regular diet.IV dc'd intact Lt AC. Reviewed dc instructions and copies sent with pt. Reviewed belongings.
--- NOTE | 2023-10-01 11:40 | PM.DS1 ---
DS: Providers Provider Date Seen: 09/30/23 Date of admission: 09/29/23 19:52 Primary care physician: Genevieve Watts MD Admitting Clinician: Chuck Bhatia MD Consults: 09/29/23 19:36 Consult to Physician [CONS] Urgent Comment: Consulting Provider: Kallie Enriquez Has provider been notified: Yes Attending Physician on discharge: Daylin Su MD [facility] Date of Discharge: 09/30/23 DS: Diagnosis Discharge Diagnosis (1) Abdominal pain: Status: Acute Problem details: -improved with IV antibiotics, discharged on oral augmentin -we appreciate the input by gen surgery -pt tolerated regular diet; walked the halls -no surgery; close follow-up with gen surg clinic and ED return precautions (2) Nausea vomiting and diarrhea: Status: Acute Problem details: improved/resolved DS: Summary Hospital Course Hospital Course: FINAL DIAGNOSIS/FOLLOW UP ISSUES: 1. Outpatient, elective colonoscopy and laparoscopic appendectomy as proposed by General surgery BRIEF HOSPITAL COURSE: Patient was admitted for overnight. Synopsis of acute inpatient issues are outlined above. Chronic medical conditions with notable findings outlined above. The patient had improved impressively overnight. She tolerated an oral diet. General surgery came to see her. At this time were discharging her home on oral Augmentin with close follow-up with the general surgery clinic and ED precautions. DISCHARGE MEDICATIONS: See Reconciled list - SIGNIFICANT CHANGES: Augmentin for 10 days Specific instructions to the patient and follow-up are outlined below. REVIEW OF SYSTEMS No new chest pain or dyspnea Pain controlled No voiding difficulties Tolerating diet challenge PHYSICAL EXAM: CONSTITUTIONAL: Alert, insightful. VITAL SIGNS: see record. HEENT: Normocephalic, atraumatic. PERRL, EOMI, conjunctivae pink, no scleral icterus. Ears and nose externally normal. Pharynx normal. NECK: No JVD. No carotid bruit, no thyromegaly, no adenopathy. CHEST: Clear to auscultation bilaterally. HEART: S1 and S2 normal. Edema ABDOMEN: Soft, nontender. Normal bowel sounds. MUSCULOSKELETAL: No gross joint deformity or swelling. NEURO: Cranial nerves intact. Grossly intact. No asymmetric findings. SKIN: No rashes, petechiae, concerning changes PSYCHIATRIC: Mood euthymic. DISPOSITION: Home Time spent on discharge 37 minutes. Status at Discharge Functional status at discharge: independent ambulation Overall status at discharge: patient is not back to baseline Time Spent with Patient Time attestation: Total time spent providing and/or coordinating discharge services: Time spent: Greater than 30 minutes Discharge Plan Discharge Disposition: Home, Self-Care Date of Admission: 09/29/23 19:52 Attending Provider on Discharge: Daylin Su Consulting Providers: Kallie Enriquez Primary Care Provider: Genevieve Watts Condition: Improved Anticipated Discharge Date/Time: 09/30/23 09:15 Discharge Medications: New amoxicillin-pot clavulanate 875-125 mg tablet 1 tab PO BID Qty: 20 0RF Continued diphenhydramine HCl 25 mg tablet PRN PRN epinephrine 0.3 mg/0.3 mL auto-injector progesterone micronized 200 mg capsule 200 mg PO QHS Qty: 30 0RF Rx Instructions: NEEDS ANNUAL VISIT FOR REFILLS - PLEASE CALL OFFICE TO SCHEDULE VISIT [phone] estradiol 0.1 mg/24 hr patch semiweekly 1 patch transdermal 2XW Qty: 24 0RF Rx Instructions: apply 1 patch for 3 days alternating with 1 patch for 4 days each week for 3 wks per 4-wk cycle Please call the [facility] at [phone] to schedule a medication check previous to requiring future refills. Thank you! Discharge Orders: Discharge Order (Routine); Ordered 09/30/23 Ordered By: Daylin Su Consulting provider completed their portion of the discharge: Yes Patient Education: Amoxicillin/Clavulanate Potassium (By mouth) Activity Level: Activity as Tolerated Discharge Diet: Regular Follow Up Appointments: Kallie Enriquez MD [Staff Physician] - 10/18/23 9:15 am ([facility] for follow-up. ) Forms: [employer] Info Instructions
== END 2023-09-30 10:00 | disposition home or self-care (01) ==
LOC: ED 18:59 → MEDSURG 19:52
PROVIDERS: Admitting Provider Family Medicine; Emergency Provider Family Medicine; PCP Obstetrics & Gynecology; Visit Provider Family Medicine
DX: R11.0 Nausea (principal); R11.10 Vomiting, unspecified; R19.7 Diarrhea, unspecified; R10.10 Upper abdominal pain, unspecified; R10.31 Right lower quadrant pain; R19.03 Right lower quadrant abdominal swelling, mass and lump; R42 Dizziness and giddiness; R79.82 Elevated C-reactive protein (CRP); R00.0 Tachycardia, unspecified; R68.83 Chills (without fever); G47.00 Insomnia, unspecified; Z91.018 Allergy to other foods; Z98.891 History of uterine scar from previous surgery; Z87.42 Personal history of other diseases of the female genital tract; Z90.49 Acquired absence of other specified parts of digestive tract; Z98.890 Other specified postprocedural states
CPT/HCPCS: 36415; 74177; 76830; 76856; 77063; 77067; 80048; 80076; 83605; 83690; 83735; 84703; 85025; 86140; 93976; 96361; 96365; 96366; 96375; 96376; 99285; A9270; G0378; J2405; J2543; J7030; J7120; Q9967

== ENCOUNTER 2023-10-12 17:26 | Day surgery (SDC) | payer OTHER, SELFPAY ==
[2023-10-12 17:31] VITALS: BP 137/79; PULSE 100; RESP 18; TEMP 36.7; O2SAT 100; BMI 22.3
--- NOTE | 2023-10-12 17:46 | ED_ITS ---
HPI - General Adult General Date Seen: 10/12/23 Chief complaint: Abdominal Pain Stated complaint: appendicitis flare up-was here on the Time Seen by Provider: 10/12/23 17:41 History of Present Illness HPI narrative: This is a 52-year-old female presenting to the ER today with sharp lower abdominal pain. According to the nurse triage note she was seen in the ER about 10 days ago and put on a 10 day course of antibiotics for inflammation around the bowel and appendix area. She called her surgeon, Dr. Su, and was advised to come to the ER because of her ongoing pain. Review of medical record: 09/29/2023-ER visit for nausea, vomiting, diarrhea ongoing for 4 days at that time. Workup in the ER showed : WBC 7.3, hemoglobin 12.7, platelet 271 Sodium 136, potassium 3.6, chloride 104, bicarb 25, BUN 14, creatinine 0.4, glucose 109, bilirubin 0.4, AST 18, ALT 14, alk-phos 50 Lipase 83 CRP 6.2H Lactic 0.7 CT scan abdomen/pelvis IMPRESSION: 1. Severe inflammatory changes in the right lower quadrant as detailed above, favored to represent acute appendicitis, possibly ruptured. 2. Nonacute additional findings as detailed above. Was admitted to the hospitalist service for IV antibiotics. From H and P, complex picture of 4 days of abdominal pain nausea vomiting and diarrhea which could be a chronic recurrent problem. She does not appear to be particularly ill though her CT scan is significantly abnormal with inflammatory changes in the right lower quadrant. Considerations include a ruptured appendix, other abscess or inflammatory process, tubo-ovarian problem, inflammatory bowel disease. Surgical consult is requested. She received inpatient Zosyn. Had consultation with General surgery. Discharge on Augmentin. She completed her 10 day course of Augmentin 2 days ago on Monday. Her symptoms had resolved while on the antibiotics Overnight last night she began to develop some recurrent symptoms she has been having intermittent episodes of right lower quadrant discomfort located low in the right lower quadrant. They are not severe but they did wake her up from sleep. They been happening off and on throughout the day. Not continuous, but intermittent. No clear pattern or exacerbating symptom or position. No other symptoms today. No fever chills. No nausea or vomiting. No diarrhea. She has noted that she has actually been struggling with constipation ever since she was in the hospital 10 days ago and she has been trying to take stool softeners, fiber, and fluids. She says without taking a stool softener she actually has not had any BMs since she was discharged. She was not discharged on any opiates. Urination has been normal. No vaginal bleeding or discharge. Related Data Home Medications Medication Instructions Recorded Confirmed diphenhydramine HCl 25 mg tablet mg PRN PRN 09/29/23 10/11/23 epinephrine 0.3 mg/0.3 mL 09/29/23 10/11/23 injection, auto-injector Previous Rx's Medication Instructions Recorded progesterone micronized 200 mg 200 mg PO QHS #30 caps 09/11/23 capsule estradiol 0.1 mg/24 hr semiweekly 1 patch transdermal 2XW #24 ea 09/18/23 transdermal patch amoxicillin 875 mg-potassium 1 tab PO BID #20 tabs 09/30/23 clavulanate 125 mg tablet Allergies Allergy/AdvReac Type Severity Reaction Status Date / Time butorphanol [From Stadol] Allergy Severe Dizziness Verified 10/12/23 18:40 & Nausea pear AdvReac Intermediate Verified 10/12/23 18:40 banana AdvReac Verified 10/12/23 18:40 yellow jacket Allergy Severe Uncoded 10/12/23 18:40 Bee venom Allergy Mild Uncoded 10/12/23 18:40 melons Allergy Uncoded 10/12/23 18:40 AVACADO,BANANNA,PEAR AdvReac Mild Uncoded 10/12/23 18:40 avacado AdvReac Uncoded 10/12/23 18:40 PFSH PFS Medical History (Updated 10/07/23 @ 00:01 by Background Dougie) Hormone replacement therapy ?Z79.890 - Hormone replacement therapy (ICD-10) Vasomotor symptoms due to menopause (~05/2020) ?N95.1 - Menopausal and female climacteric states (ICD-10) Labile mood (~01/2021) ?R45.86 - Emotional lability (ICD-10) Insomnia (~2019) ?G47.00 - Insomnia, unspecified (ICD-10) History of abnormal cervical Papanicolaou smear (~2007) ?Z87.42 - Personal history of other diseases of the female genital tract (ICD-10) Alopecia (~01/2021) ?L65.9 - Nonscarring hair loss, unspecified (ICD-10) Surgical History History of female sterilization (01/30/13) ?Z98.890 - Other specified postprocedural states (ICD-10) Status post laparoscopic cholecystectomy (04/2001) ?Z90.49 - Acquired absence of other specified parts of digestive tract (ICD- 10) History of low transverse section (04/17/20) ?Z98.891 - History of uterine scar from previous surgery (ICD-10) Family History Mother Osteoporosis Heart disease High blood pressure Father Family history of nonleukemic malignant neoplasm of lymphatic system Alcohol abuse Nonmelanoma skin cancer Drug dependence Maternal Grandmother Heart disease Social History Narrative: She lives in [place] with her . 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 She does not smoke. She has 4 glasses of wine per week. What is your current living situation?: I presently have a place to live Problems where you live: no known problems Problems where you live details: N/A In the past 12 months, utilities in danger of being shut off: no In past 12 months, lack of transportation kept you from medical appts, meetings, work, or getting things needed for daily living: no In the past 12 mos, have been you worried that your food would run out before you had money to buy more?: never true In the past 12 mos, the food you bought just didn't last and you didn't have money to buy more?: never true Highest level of school completed/degree received: some college, no degree Smoking Status: Never smoker How often do you have a drink containing alcohol: 2-3 times a week Alcohol type: wine How many standard drinks containing alcohol do you have on a typical day: 3 or 4 How often do you have six or more drinks on one occasion: Less than monthly AUDIT-C Alcohol total score: 5 Non-prescribed substance use: denies use Caffeine: Yes How often does anyone, including family, friends and others, physically hurt you : never How often does anyone, including family, friends and others, insult or talk down to you: never How often does anyone, including family, friends and others, threaten you with harm: never How often does anyone, including family, friends and others, scream or curse at you: never service: No Exam Narrative: Exam Narrative: Constitutional: Appears well-developed and well-nourished. Alert. Conversant. Non toxic. HENT: Head: Atraumatic. Nose: Nose normal. Mouth/Throat: Oral mucosa is clear and moist. no trismus. Pharynx normal. To nsils symmetric. No tonsillar enlargement, erythema, or exudate. Eyes: Conjunctivae normal. EOM normal. Pupils equal, round, and reactive to light. No scleral icterus. Neck: Normal range of motion. Neck supple. No tracheal deviation present. Cardiovascular: Normal rate, regular rhythm. No gallop. No friction rub. No murmur heard. Symmetric radial artery pulses Pulmonary/Chest: Effort normal. No stridor. No respiratory distress. No wheezes. No rales. No rhonchi . No tenderness. Abdominal: Soft. Bowel sounds normal. No distension. No mass. Mild tenderness in the lower right lower quad. No rebound. No guarding. No psoas sign. No Rovsing sign. No Mehta sign. No peritoneal findings. No CVA tenderness Musculoskeletal: RUE: Normal range of motion. No tenderness. No deformity LUE: Normal range of motion. No tenderness. No deformity RLE: Normal range of motion. No edema. No tenderness. No deformity LLE: Normal range of motion. No edema. No tenderness. No deformity Neurological: Alert and oriented to person, place, and time. Normal strength. CN II-VII intact. No sensory deficit. GCS eye subscore is 4. GCS verbal subscore is 5. GCS motor subscore is 6. Normal coordination Skin: Skin is warm and dry. No rash noted. No pallor. Normal capillary refill. Psychiatric: Normal mood. Normal affect. Const: Vital Signs, click to edit/add: Vital Signs - 24 hr 10/12/23 17:31 Temperature 98.1 F Pulse Rate [Pulse Oximeter] 100 Respiratory Rate 18 Blood Pressure [Ri ght Upper Arm] 137/79 Pulse Oximetry 100 Oxygen Delivery Me thod Room Air Course Course ED Course: Initial history and physical exam performed. Discussed with surgery, Dr. Barrientos. Will proceed with workup here in the ER including labs, follow-up CT imaging. Recheck-hemodynamically stable. Still comfortable in declining pain meds. Discussed again with surgery, Dr. Barrientos. Plan will be to admit for IV antibiotics, NPO after midnight and plan for laparoscopic surgery tomorrow morning. Vital Signs Vital signs: Initial Vital Signs Temperature 98.1 F 10/12/23 17:31 Temperature Source Temporal Artery Scan 10/12/23 17:31 Pulse Rate 100 10/12/23 17:31 Pulse Rhythm Regular 10/12/23 17:31 Respiratory Rate 18 10/12/23 17:31 Blood Pressure 137/79 10/12/23 17:31 Blood Pressure Mean 98 10/12/23 17:31 Blood Pressure Position Sitting 10/12/23 17:31 Pulse Oximetry 100 10/12/23 17:31 Oxygen Delivery Method Room Air 10/12/23 17:31 Vital Signs Temperature 98.1 F 10/12/23 17:31 Pulse Rate 100 10/12/23 17:31 Respiratory Rate 18 10/12/23 17:31 Blood Pressure 137/79 10/12/23 17:31 Pulse Oximetry 100 10/12/23 17:31 Oxygen Delivery Method Room Air 10/12/23 17:31 Temperature 98.1 F 10/12/23 17:31 Pulse Rate 100 10/12/23 17:31 Respiratory Rate 18 10/12/23 17:31 Blood Pressure 137/79 10/12/23 17:31 Pulse Oximetry 100 10/12/23 17:31 Oxygen Delivery Method Room Air 10/12/23 17:31 Medications Administered Medications: Generic Name Dose Route Start Last Admin Trade Name Freq PRN Reason Stop Dose Admin Piperacillin Sod/Tazobactam 100 mls @ 200 mls/hr 10/12/23 20:00 10/12/23 20:30 Sod 4.5 gm/ Sodium Chloride IVPB Infused Q6H MERRITT Infusion Medical Decision Making [facility] Narrative Medical decision making narrative: Pleasant generally healthy 52-year-old female returns to the ER today for intermittent, but mild, right lower quadrant abdominal pain. She has a complex recent abdominal history-see HPI. She just finished her antibiotics 2 days ago in pain started again overnight last night. Repeat workup here shows reassuring labs. Repeat CT scan shows findings that of a cure to read represent an acute uncomplicated, on ruptured appendicitis. No signs of any pelvic abscess or free fluid. Clinically this does not quite fit with the patient's presentation given that she had pain and abnormal CT 10 days ago. However residual appendicitis cannot be completely ruled out. Will start on IV antibiotics. She will be admitted to the hospitalist service for antibiotics and monitoring with plan to go to the OR tomorrow morning. Surgery also discussed that this could represent other pathology. They would recommend that we delay surgery and not take her to the OR tonight in case she has a complex case. They would have a additional backup in partners available tomorrow morning, which are not available tonight. Discussed with the patient. She is in agreement to be admitted and have surgery tomorrow morning. Discussed the ambiguity about the CT findings and the presentation. She is interested to have surgery and get a definitive answer. Lab Data Labs: Lab Results 10/12/23 10/12/23 10/12/23 Range/Units 18:20 18:20 19:00 WBC 8.58 (4.50-11.00) K/uL RBC 4.16 (4.00-5.20) m/uL Hgb 13.1 (12.0-16.0) gm/dL Hct 37.9 (33.0-51.0) % MCV 91 (80-100) fL MCH 32 (26-34) pg MCHC 35 (32-36) gm/dL RDW Coeff of Jennifer 11.3 L (11.5-15.5) % Plt Count 362 (140-440) K/uL Neut % (Auto) 64.8 (42.0-72.0) % Lymph % (Auto) 27.4 (20-44) % Wallace % (Auto) 5.9 (0.0-11.0) % Eos % (Auto) 1.4 (0.0-7.0) % Baso % (Auto) 0.3 (0.0-3.0) % Neut # (Auto) 5.55 (1.7-7.0) K/uL Lymph # (Auto) 2.35 (0.90-2.90) K/uL Wallace # (Auto) 0.50 (0.00-0.90) K/UL Eos # (Auto) 0.12 (0.00-0.50) K/uL Baso # (Auto) 0.03 (0.00-0.30) K/uL Abs Immat Gran (auto) 0.02 (0.00-0.30) K/uL Imm/Tot Granulo (auto) 0.2 % Sodium 138 (135-149) mmol/L Potassium 3.6 (3.6-5.1) mmol/L Chloride 103 (96-114) mmol/L Carbon Dioxide 30 (20-32) mmol/L Anion Gap 5 L (7-15) mEq/L BUN 13 (7-30) mg/dL Creatinine 0.5 (0.5-1.5) mg/dL Estimated Creat Clear 107.64 Estimated GFR 112 ml/min Glucose 100 (60-115) mg/dL Calcium 9.5 (8.4-10.6) mg/dL Total Bilirubin 0.3 (0.1-1.5) mg/dL AST 21 (12-35) U/L ALT 18 (4-35) U/L Alkaline Phosphatase 48 (40-150) U/L C-Reactive Protein Cancelled < 0.5 L Total Protein 7.5 (6.0-8.3) g/dL Albumin 4.5 (3.3-5.0) g/dL Urine Color Yellow (Yellow) Urine Appearance Clear (Clear) Urine pH 7.0 (5.0-8.5) Ur Specific [place] 1.010 (1.000-1.030) Urine Protein Negative (Negative) Urine Glucose (UA) Negative (Negative) Urine Ketones Negative (Negative) Urine Blood Negative (Negative) Urine Nitrite Negative (Negative) Urine Bilirubin Negative (Negative) Urine Urobilinogen 0.2 (0.2-1.0) Ur Leukocyte Esterase Negative (Negative) Urine RBC 0-2 (0-2) Urine WBC 0-2 (0-5) Ur Squamous Epith Cells None (None-Few) Urine Bacteria None (None) Urine HCG, Qual Negative (Negative) Imaging Data CT scan - abdomen: Attestation: I have reviewed the pertinent imaging results. Radiologist's impression: IMPRESSION: Findings compatible with acute uncomplicated appendicitis.
--- NOTE | 2023-10-12 17:59 | CT_ITS ---
Patient: MOY CORONADO Facility:?[facility] Patient ID:?[id number] Site Patient ID:?[id number] Site :?[id number] Study:?CT-Abdomen/Pelvis W/ 62CC ISOVUE 370-10/12/2023 6:38:09 PM Ordering Physician:GABRIELA Final Report: INDICATION: Right lower quadrant pain. TECHNIQUE: CT abdomen and pelvis acquired with 62 mL Isovue 370 contrast. COMPARISON: CT abdomen/pelvis dated 09/29/2023. FINDINGS: Lower chest: No focal consolidation. Liver: Stable too small to characterize hypodense hepatic lesion at the hepatic dome, likely benign in the absence of a known malignancy. Gallbladder and bile ducts: Post cholecystectomy. Pancreas: Unremarkable. Spleen: Unremarkable. Adrenal glands: Unremarkable. Kidneys: Kidneys enhance symmetrically, without hydronephrosis. Too small to characterize hypodense bilateral renal lesions. Stable simple appearing 3.4 cm cyst in the upper pole of the right kidney. Retroperitoneum: No lymphadenopathy. Bowel and mesentery: Bowel is not obstructed. No significant ascites, no pneumoperitoneum. Again seen is a dilated tubular blind-ending structure in the right lower quadrant, with mild adjacent inflammatory changes and hyperemia, compatible with acute appendicitis. No evidence of perforation or abscess formation at this time. Bladder: Unremarkable for degree of distention. Reproductive organs: Unremarkable. Bilateral Essure devices noted. Pelvic lymph nodes: No lymphadenopathy. Vessels: Unremarkable. Abdominal wall: No acute abdominal wall abnormality. Bones: Multilevel degenerative changes of the spine. No suspicious/aggressive focal osseous lesion. IMPRESSION: Findings compatible with acute uncomplicated appendicitis. Please note that all CT scans at this facility use dose modulation, iterative reconstruction, and/or weight-based dosing when appropriate to reduce radiation dose to as low as reasonably achievable. Dictated by Antonio Chauhan MD @ 10/12/2023 7:04:27 PM ----- ADDENDUM ----- Case discussed with Dr. Barrientos at 19:15 on 10/12/2023. Dictated by Antonio Chauhan MD @ Oct 12 2023 8:27PM Signed by:?Antonio Chauhan MD @10/12/2023 7:04:27 PM (Electronic Signature)
[2023-10-12 18:29] LABS: Basophils Absolute Auto 0.03 K/uL (0.00-0.30); Basophils Percent Auto 0.3 % (0.0-3.0); Eosinophils Absolute Auto 0.12 K/uL (0.00-0.50); Eosinophils Percent Auto 1.4 % (0.0-7.0); Hematocrit 37.9 % (33.0-51.0); Hemoglobin* 13.1 gm/dL (12.0-16.0); Immature Granulocytes Abs Auto 0.02 K/uL (0.00-0.30); Immature Granulocytes Pct Auto 0.2 %; Lymphocytes Absolute Auto 2.35 K/uL (0.90-2.90); Lymphocytes Percent Auto 27.4 % (20-44); Mean Corpuscular HGB Conc 35 gm/dL (32-36); Mean Corpuscular Hemoglobin 32 pg (26-34); Mean Corpuscular Volume 91 fL (80-100); Monocytes Percent Auto 5.9 % (0.0-11.0); Neutrophils Absolute Auto 5.55 K/uL (1.7-7.0); Neutrophils Percent Auto 64.8 % (42.0-72.0); Platelet Count* 362 K/uL (140-440); RDW Coefficient of Variation % 11.3 % (11.5-15.5); Red Blood Count 4.16 m/uL (4.00-5.20); White Blood Count* 8.58 K/uL (4.50-11.00)
[2023-10-12 18:31] LABS: Slide Review Reflex No
[2023-10-12 18:44] LABS: Albumin* 4.5 g/dL (3.3-5.0); Chloride* 103 mmol/L (96-114); Sodium* 138 mmol/L (135-149)
[2023-10-12 18:45] LABS: Potassium* 3.6 mmol/L (3.6-5.1)
[2023-10-12 18:47] LABS: Alanine Aminotransferase* 18 U/L (4-35); Alkaline Phosphatase* 48 U/L (40-150); Anion Gap 5 mEq/L (7-15); Aspartate Amino Transferase* 21 U/L (12-35); Bilirubin Total* 0.3 mg/dL (0.1-1.5); Blood Urea Nitrogen* 13 mg/dL (7-30); Carbon Dioxide* 30 mmol/L (20-32); Creatinine* 0.5 mg/dL (0.5-1.5); Est. Creatinine Clearance* 107.64; Estimated Glomerular Filt Rate 112 ml/min; Total Protein* 7.5 g/dL (6.0-8.3)
[2023-10-12 18:48] LABS: Calcium* 9.5 mg/dL (8.4-10.6); Glucose* 100 mg/dL (60-115)
[2023-10-12 18:54] LABS: C Reactive Protein* < 0.5 mg/dL (0.5-1.0)
[2023-10-12 19:10] LABS: Appearance Urine Clear (Clear); Bilirubin Urine Negative (Negative); Blood Urine Negative (Negative); Color Urine Yellow (Yellow); Glucose Urine Negative (Negative); Ketones Urine Negative (Negative); Leukocyte Esterase Urine Negative (Negative); Nitrite Urine Negative (Negative); Protein Urine Negative (Negative); Urobilinogen Urine 0.2 (0.2-1.0)
[2023-10-12 19:16] LABS: Ur HCG Qualitative* Negative (Negative)
[2023-10-12 19:39] LABS: RBC Urine 0-2 (0-2); WBC Urine 0-2 (0-5)
[2023-10-12] MEDS: PIPERACILLIN/TAZOBACTAM 4.5 GM in 0.9 % SODIUM CHLORIDE Mini-bag 100 ML IVPB (20:00)
[2023-10-12 20:59] VITALS: BP 146/91; PULSE 90; RESP 16; TEMP 36.9; O2SAT 99; BMI 22.4
[2023-10-12 21:00] VITALS: BP 146/91; PULSE 90; RESP 16; TEMP 36.9; O2SAT 99
--- NOTE | 2023-10-12 21:23 | P.IMHP_ITS ---
Hospitalist- H&P: HPI History of Present Illness Date Seen: 10/12/23 Chief complaint: appendicitis flare up-was here on the Narrative: Edilma Shabazz is a 52 year old woman who presents to the emergency department today for reassessment of recurrent right lower quadrant abdominal pain. Patient presented to the [facility] emergency department on 09/29/2023 for assessment of nausea, vomiting, diarrhea of 4 days duration. White blood cell count was normal at 7.3. C reactive protein was elevated at 6.2. Lactate was normal at 0.7. CT scan of abdomen suggested severe inflammatory changes in the right lower quadrant suggestive of acute appendicitis possibly ruptured. Transvaginal pelvic ultrasound also suggested the possibility of acute appendicitis. Patient treated with IV fluids, IV antibiotics. Condition improved substantially overnight. Tolerated oral intake and started on oral Augmentin which she completed 2 days ago. Established plan to return to the emergency department if her condition worsened or did not improve. Given that her symptoms improved until the recurrence for the past 24 hours, she presents for further assessment. Denies fevers, rigors, diaphoresis. Developed a new since some right lower quadrant abdominal discomfort. Has been present intermittently throughout the day today. Again denies fevers, rigors, diaphoresis. This time has no nausea vomiting. Also has no diarrhea. Has had constipation since she was hospitali [facility] 13 days ago, and is requiring use of stool softners and laxative to have BMs now. Prior to her admission to the hospital 13 days ago, she did not require the use of stool softners or laxative to have BMs every 2-3 days. No recent trauma, injury, blood loss. Denies dysuria, urgency, frequency, hematuria. Denies any vaginal discharge or bleeding. Review of Systems Status of ROS: Reports: 10 or more systems reviewed and unremarkable except as noted in History and below [facility] Medical History Hormone replacement therapy ?Z79.890 - Hormone replacement therapy (ICD-10) Vasomotor symptoms due to menopause (~05/2020) ?N95.1 - Menopausal and female climacteric states (ICD-10) Labile mood (~01/2021) ?R45.86 - Emotional lability (ICD-10) Insomnia (~2019) ?G47.00 - Insomnia, unspecified (ICD-10) History of abnormal cervical Papanicolaou smear (~2007) ?Z87.42 - Personal history of other diseases of the female genital tract (ICD-10) Alopecia (~01/2021) ?L65.9 - Nonscarring hair loss, unspecified (ICD-10) Surgical History History of female sterilization (01/30/13) ?Z98.890 - Other specified postprocedural states (ICD-10) Status post laparoscopic cholecystectomy (04/2001) ?Z90.49 - Acquired absence of other specified parts of digestive tract (ICD- 10) History of low transverse section (04/17/20) ?Z98.891 - History of uterine scar from previous surgery (ICD-10) Family History Mother Osteoporosis Heart disease High blood pressure Father Family history of nonleukemic malignant neoplasm of lymphatic system Alcohol abuse Nonmelanoma skin cancer Drug dependence Maternal Grandmother Heart disease Social History Narrative: She lives in [place] with her . 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 She does not smoke. She has 4 glasses of wine per week. What is your current living situation?: I presently have a place to live Problems where you live: no known problems Problems where you live details: N/A In the past 12 months, utilities in danger of being shut off: no In past 12 months, lack of transportation kept you from medical appts, meetings, work, or getting things needed for daily living: no In the past 12 mos, have been you worried that your food would run out before you had money to buy more?: never true In the past 12 mos, the food you bought just didn't last and you didn't have money to buy more?: never true Highest level of school completed/degree received: some college, no degree Smoking Status: Never smoker Do you use any of these nicotine containing products: None Second hand tobacco smoke exposure: No How often do you have a drink containing alcohol: 2-3 times a week Alcohol type: wine How many standard drinks containing alcohol do you have on a typical day: 1 or 2 How often do you have six or more drinks on one occasion: Less than monthly AUDIT-C Alcohol total score: 4 Non-prescribed substance use: denies use Caffeine: Yes How often does anyone, including family, friends and others, physically hurt you : never How often does anyone, including family, friends and others, insult or talk down to you: never How often does anyone, including family, friends and others, threaten you with harm: never How often does anyone, including family, friends and others, scream or curse at you: never service: No Meds Home Medications and Allergies Home Medications Medication Instructions Recorded Confirmed Type diphenhydramine HCl 25 mg tablet mg PRN PRN 09/29/23 10/11/23 History epinephrine 0.3 mg/0.3 mL 09/29/23 10/11/23 History injection, auto-injector Home Medication Comments: Completed 10 day course of Augmentin 875/125, 1 tab p.o. b.i.d. for 10 days 2 days ago. Allergies Allergy/AdvReac Type Severity Reaction Status Date / Time butorphanol [From Stadol] Allergy Severe Dizziness Verified 10/12/23 18:40 & Nausea pear AdvReac Intermediate Verified 10/12/23 18:40 banana AdvReac Verified 10/12/23 18:40 yellow jacket Allergy Severe Uncoded 10/12/23 18:40 Bee venom Allergy Mild Uncoded 10/12/23 18:40 melons Allergy Uncoded 10/12/23 18:40 AVACADO,BANANNA,PEAR AdvReac Mild Uncoded 10/12/23 18:40 avacado AdvReac Uncoded 10/12/23 18:40 Exam Narrative: Exam Narrative: Examined patient in the emergency department. Appears comfortable and in no acute distress. Vision and hearing are grossly normal. Alert and oriented to self, place, time, situation. From the, articulate, cooperative. External auditory canals are clear tympanic membranes normal. Midline nasal septum. Normal nasal mucosa. Buccal mucosa is normal. Dentition in fair repair. Oropharynx is benign. Midline trachea. Normal thyroid. No lymphadenopathy in the head and neck region. Lungs are clear to auscultation without wheezing, rhonchi, or rales. No CVA tenderness. Heart tones with regular rhythm, normal S1-S2, without murmur, gallop, or rub. PMI is not laterally displaced. Abdomen with active bowel sounds, soft, nontender except for minimal subjective discomfort and right lower quadrant. No rebound or guarding. Independent transfer, station, and gait. Extremities without edema. No focal motor neurologic deficits. Skin is warm, dry, intact. No icterus or jaundice. Const: Vital Signs, click to edit/add: Vital Signs - 24 hr 10/12/23 17:31 10/12/23 20:59 10/12/23 20:59 Temperature 98.1 F 98.5 F Pulse Rate [Left R adial] 90 Pulse Rate [Pulse Oximeter] 100 Respiratory Rate 18 16 16 Blood Pressure [Le ft Arm] 146/91 H Blood Pressure [Ri ght Upper Arm] 137/79 Pulse Oximetry 100 99 99 Oxygen Delivery Me thod Room Air Room Air Room Air 10/12/23 21:00 Temperature 98.5 F Pulse Rate [Left R adial] 90 Pulse Rate [Pulse Oximeter] Respiratory Rate 16 Blood Pressure [Le ft Arm] 146/91 H Blood Pressure [Ri ght Upper Arm] Pulse Oximetry 99 Oxygen Delivery Me thod Room Air Hospitalist - H&P: Result Labs Labs: Short CBC 10/12/23 Range/Units 18:20 WBC 8.58 (4.50-11.00) K/uL Hgb 13.1 (12.0-16.0) gm/dL Hct 37.9 (33.0-51.0) % Plt Count 362 (140-440) K/uL BMP 10/12/23 18:20 Sodium 138 Potassium 3.6 Chloride 103 Carbon Dioxide 30 BUN 13 Creatinine 0.5 Glucose 100 Calcium 9.5 Liver Function 10/12/23 Range/Units 18:20 Total Bilirubin 0.3 (0.1-1.5) mg/dL AST 21 (12-35) U/L ALT 18 (4-35) U/L Alkaline Phosphatase 48 (40-150) U/L Albumin 4.5 (3.3-5.0) g/dL Urine 10/12/23 Range/Units 19:00 Urine Color Yellow (Yellow) Urine Appearance Clear (Clear) Urine pH 7.0 (5.0-8.5) Ur Specific [place] 1.010 (1.000-1.030) Urine Protein Negative (Negative) Urine Glucose (UA) Negative (Negative) Imaging CT scan - abdomen and pelvis: Attestation: I have reviewed the pertinent imaging results. Radiologist's impression: FINDINGS: Lower chest: No focal consolidation. Liver: Stable too small to characterize hypodense hepatic lesion at the hepatic dome, likely benign in the absence of a known malignancy. Gallbladder and bile ducts: Post cholecystectomy. Pancreas: Unremarkable. Spleen: Unremarkable. Adrenal glands: Unremarkable. Kidneys: Kidneys enhance symmetrically, without hydronephrosis. Too small to characterize hypodense bilateral renal lesions. Stable simple appearing 3.4 cm cyst in the upper pole of the right kidney. Retroperitoneum: No lymphadenopathy. Bowel and mesentery: Bowel is not obstructed. No significant ascites, no pneumoperitoneum. Again seen is a dilated tubular blind-ending structure in the right lower quadrant, with mild adjacent inflammatory changes and hyperemia, compatible with acute appendicitis. No evidence of perforation or abscess f ormation at this time. Bladder: Unremarkable for degree of distention. Reproductive organs: Unremarkable. Bilateral Essure devices noted. Pelvic lymph nodes: No lymphadenopathy. Vessels: Unremarkable. Abdominal wall: No acute abdominal wall abnormality. Bones: Multilevel degenerative changes of the spine. No suspicious/aggressive focal osseous lesion. IMPRESSION: Findings compatible with acute uncomplicated appendicitis. Assessment and Plan Assessment and plan (1) Recurrent right lower quadrant abdominal pain: Problem comment: - CT scan 10/12/2023 suggest acute appendicitis. Differential diagnosis includes inflammatory bowel disease, neoplasm. - Dr. Joel Burnett, emergency department, [facility], discussed with our general surgeon, Dr. Rose Barrientos. Will admit patient to observation, keep NPO, treat with IV fluids, continue with IV antibiotics using piperacillin and tazobactam, and patient will be assessed by our general surgeon in the morning to discuss possible laparoscopic exam and intervention. Status: Acute (2) Weight loss: Problem comment: - on review of her medical records patient has lost 3 kg since June 2023 Status: Acute Plan 1. Reviewed impression with patient. Answered her questions. 2. Patient agreeable with above stated plans and recommendations. Total Time Spent Total Time Spent: 50 minutes
[2023-10-12] MEDS: 0.9 % SODIUM CHLORIDE 1000 ml 1,000 ML 125 ML IV (21:59)
[2023-10-12] MEDS: MELATONIN 3 MG TABLET 6 MG PO (22:08)
[2023-10-12 23:00] VITALS: RESP 16; O2SAT 97
[2023-10-13] VITALS (20 sets, daily range): BP systolic 93–141; BP diastolic 57–85; PULSE 69–103; RESP 12–16; TEMP 36.2–37.2; O2SAT 96–100
[2023-10-13] MEDS: PIPERACILLIN/TAZOBACTAM 3.375 GM in 0.9 % SODIUM CHLORIDE Mini-bag 100 ML IVPB ×2 (02:05→08:59)
--- NOTE | 2023-10-13 05:18 | PC.NURSE ---
[id number] Pt slept all night, No pain, N/V.
[2023-10-13] MEDS: 0.9 % SODIUM CHLORIDE 1000 ml 1,000 ML 125 ML IV (06:15)
[2023-10-13 06:49] LABS: Basophils Absolute Auto 0.02 K/uL (0.00-0.30); Basophils Percent Auto 0.3 % (0.0-3.0); Eosinophils Absolute Auto 0.09 K/uL (0.00-0.50); Eosinophils Percent Auto 1.6 % (0.0-7.0); Hematocrit 39.2 % (33.0-51.0); Hemoglobin* 13.4 gm/dL (12.0-16.0); Immature Granulocytes Abs Auto 0.02 K/uL (0.00-0.30); Immature Granulocytes Pct Auto 0.3 %; Lymphocytes Absolute Auto 2.19 K/uL (0.90-2.90); Lymphocytes Percent Auto 37.8 % (20-44); Mean Corpuscular HGB Conc 34 gm/dL (32-36); Mean Corpuscular Hemoglobin 31 pg (26-34); Mean Corpuscular Volume 92 fL (80-100); Monocytes Percent Auto 7.4 % (0.0-11.0); Neutrophils Absolute Auto 3.04 K/uL (1.7-7.0); Neutrophils Percent Auto 52.6 % (42.0-72.0); Platelet Count* 355 K/uL (140-440); RDW Coefficient of Variation % 11.5 % (11.5-15.5); Red Blood Count 4.28 m/uL (4.00-5.20); White Blood Count* 5.79 K/uL (4.50-11.00)
[2023-10-13 06:51] LABS: Slide Review Reflex No
[2023-10-13 07:25] LABS: Albumin* 4.2 g/dL (3.3-5.0); Chloride* 107 mmol/L (96-114)
[2023-10-13 07:26] LABS: Potassium* 3.7 mmol/L (3.6-5.1); Sodium* 137 mmol/L (135-149)
[2023-10-13 07:28] LABS: Creatinine* 0.5 mg/dL (0.5-1.5); Est. Creatinine Clearance* 107.64; Estimated Glomerular Filt Rate 112 ml/min
[2023-10-13 07:29] LABS: Alanine Aminotransferase* 18 U/L (4-35); Alkaline Phosphatase* 51 U/L (40-150); Anion Gap 4 mEq/L (7-15); Aspartate Amino Transferase* 21 U/L (12-35); Bilirubin Direct* 0.1 mg/dL (0.0-0.5); Bilirubin Total* 0.7 mg/dL (0.1-1.5); Blood Urea Nitrogen* 11 mg/dL (7-30); Carbon Dioxide* 26 mmol/L (20-32); Glucose* 94 mg/dL (60-115); Phosphorus* 3.6 mg/dL (2.5-4.5); Total Protein* 7.2 g/dL (6.0-8.3)
[2023-10-13 07:30] LABS: Magnesium* 2.1 mg/dL (1.5-2.6)
[2023-10-13 07:52] LABS: C Reactive Protein* < 0.5 mg/dL (0.5-1.0); Procalcitonin* < 0.03 ng/mL (<0.50)
[2023-10-13 08:14] LABS: Erythrocyte SedimentationRate* 7 mm/hr (2-20)
--- NOTE | 2023-10-13 09:50 | P.GSCN_ITS ---
History of Present Illness Consult details Date Seen: 10/13/23 Consult date: 10/13/23 Narrative: Patient is a 52-year-old female who presented to the emergency department for recurrent right lower quadrant abdominal pain. She had a recent hospitalization on 09/29/2023 for similar symptoms. At that time labs were within normal limits, except for mildly elevated CRP (6). A CT scan was performed on 09/29/2023 which demonstrated severe inflammatory changes in the right lower quadrant, favoring acute appendicitis, possible ruptured. My partner Dr. Enriquez evaluated the patient during that hospital stay. Her pain improved and the decision was made for the patient to go home on 10 days of oral antibiotics and follow up as an outpatient. She completed the antibiotics yesterday. As soon as the antibiotics were done the pain returned, bringing her into the emergency department. The pain is different compared to ten days ago. She describes it as a quick, sharp pain in the RLQ. It gets worse with movement. She denies any fevers or chills at home. Does report some constipation since her last hospital stay, requiring a daily laxative. No nausea or vomiting. Abdominal surgical history is positive for laparoscopic cholecystectomy and low transverse C-s ection. Review of Systems Status of ROS: Reports: 10 or more systems reviewed and unremarkable except as noted in History and below [facility] Medical History Hormone replacement therapy ?Z79.890 - Hormone replacement therapy (ICD-10) Vasomotor symptoms due to menopause (~05/2020) ?N95.1 - Menopausal and female climacteric states (ICD-10) Labile mood (~01/2021) ?R45.86 - Emotional lability (ICD-10) Insomnia (~2019) ?G47.00 - Insomnia, unspecified (ICD-10) History of abnormal cervical Papanicolaou smear (~2007) ?Z87.42 - Personal history of other diseases of the female genital tract (ICD-10) Alopecia (~01/2021) ?L65.9 - Nonscarring hair loss, unspecified (ICD-10) Surgical History History of female sterilization (01/30/13) ?Z98.890 - Other specified postprocedural states (ICD-10) Status post laparoscopic cholecystectomy (04/2001) ?Z90.49 - Acquired absence of other specified parts of digestive tract (ICD- 10) History of low transverse section (04/17/20) ?Z98.891 - History of uterine scar from previous surgery (ICD-10) Family History Mother Osteoporosis Heart disease High blood pressure Father Family history of nonleukemic malignant neoplasm of lymphatic system Alcohol abuse Nonmelanoma skin cancer Drug dependence Maternal Grandmother Heart disease Social History Narrative: She lives in [place] with her . 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 She has 4 glasses of wine per week. What is your current living situation?: I presently have a place to live Problems where you live: no known problems Problems where you live details: N/A In the past 12 months, utilities in danger of being shut off: no In past 12 months, lack of transportation kept you from medical appts, meetings, work, or getting things needed for daily living: no In the past 12 mos, have been you worried that your food would run out before you had money to buy more?: never true In the past 12 mos, the food you bought just didn't last and you didn't have money to buy more?: never true Highest level of school completed/degree received: some college, no degree Smoking Status: Never smoker Do you use any of these nicotine containing products: None Second hand tobacco smoke exposure: No How often do you have a drink containing alcohol: 2-3 times a week Alcohol type: wine How many standard drinks containing alcohol do you have on a typical day: 1 or 2 How often do you have six or more drinks on one occasion: Less than monthly AUDIT-C Alcohol total score: 4 Non-prescribed substance use: denies use Caffeine: Yes How often does anyone, including family, friends and others, physically hurt you : never How often does anyone, including family, friends and others, insult or talk down to you: never How often does anyone, including family, friends and others, threaten you with harm: never How often does anyone, including family, friends and others, scream or curse at you: never service: No Meds Home Medications and Allergies Home Medications Medication Instructions Recorded Confirmed Type epinephrine 0.3 mg/0.3 mL 0.3 mg IM ONCE PRN 09/29/23 10/13/23 History injection, auto-injector Allergies Allergy/AdvReac Type Severity Reaction Status Date / Time butorphanol [From Stadol] Allergy Severe Dizziness Verified 10/12/23 18:40 & Nausea pear AdvReac Intermediate Verified 10/12/23 18:40 banana AdvReac Verified 10/12/23 18:40 yellow jacket Allergy Severe Uncoded 10/12/23 18:40 Bee venom Allergy Mild Uncoded 10/12/23 18:40 melons Allergy Uncoded 10/12/23 18:40 AVACADO,BANANNA,PEAR AdvReac Mild Uncoded 10/12/23 18:40 avacado AdvReac Uncoded 10/12/23 18:40 Exam Narrative: Exam Narrative: General: Alert and oriented, no acute distress Respiratory: Equal breath rise, maintained on room air CV: Well perfused Abdomen: Soft, nontender nondistended. Previous surgical incisions well healed. Const: Vital Signs, click to edit/add: Vital Signs - 24 hr 10/12/23 17:31 10/12/23 20:59 10/12/23 20:59 Temperature 98.1 F 98.5 F Pulse Rate [Left R adial] 90 Pulse Rate [Pulse Oximeter] 100 Respiratory Rate 18 16 16 Blood Pressure [Le ft Arm] 146/91 H Blood Pressure [Ri ght Arm] Blood Pressure [Ri ght Upper Arm] 137/79 Pulse Oximetry 100 99 99 Oxygen Delivery Me thod Room Air Room Air Room Air 10/12/23 21:00 10/12/23 23:00 10/13/23 02:21 Temperature 98.5 F 97.8 F Pulse Rate [Left R adial] 90 80 Pulse Rate [Pulse Oximeter] Respiratory Rate 16 16 16 Blood Pressure [Le ft Arm] 146/91 H Blood Pressure [Ri ght Arm] 93/57 L Blood Pressure [Ri ght Upper Arm] Pulse Oximetry 99 97 97 Oxygen Delivery Me thod Room Air Room Air Room Air Results Labs Labs: Abnormal lab results 10/12/23 10/13/23 Range/Units 18:20 06:39 RDW Coeff of Jennifer 11.3 L (11.5-15.5) % Anion Gap 5 L 4 L (7-15) mEq/L C-Reactive Protein < 0.5 L < 0.5 L (0.5-1.0) mg/dL Procalcitonin < 0.03 L (<0.50) ng/mL Diabetes panel 10/12/23 10/13/23 Range/Units 18:20 06:39 Sodium 138 137 (135-149) mmol/L Potassium 3.6 3.7 (3.6-5.1) mmol/L Chloride 103 107 (96-114) mmol/L Carbon Dioxide 30 26 (20-32) mmol/L BUN 13 11 (7-30) mg/dL Creatinine 0.5 0.5 (0.5-1.5) mg/dL Glucose 100 94 (60-115) mg/dL Calcium 9.5 9.0 (8.4-10.6) mg/dL AST 21 21 (12-35) U/L ALT 18 18 (4-35) U/L Alkaline Phosphatase 48 51 (40-150) U/L Total Protein 7.5 7.2 (6.0-8.3) g/dL Albumin 4.5 4.2 (3.3-5.0) g/dL Calcium panel 10/12/23 10/13/23 Range/Units 18:20 06:39 Calcium 9.5 9.0 (8.4-10.6) mg/dL Phosphorus 3.6 (2.5-4.5) mg/dL Albumin 4.5 4.2 (3.3-5.0) g/dL Pituitary panel 10/12/23 10/13/23 Range/Units 18:20 06:39 Sodium 138 137 (135-149) mmol/L Potassium 3.6 3.7 (3.6-5.1) mmol/L Chloride 103 107 (96-114) mmol/L Carbon Dioxide 30 26 (20-32) mmol/L BUN 13 11 (7-30) mg/dL Creatinine 0.5 0.5 (0.5-1.5) mg/dL Glucose 100 94 (60-115) mg/dL Calcium 9.5 9.0 (8.4-10.6) mg/dL Adrenal panel 10/12/23 10/13/23 Range/Units 18:20 06:39 Sodium 138 137 (135-149) mmol/L Potassium 3.6 3.7 (3.6-5.1) mmol/L Chloride 103 107 (96-114) mmol/L Carbon Dioxide 30 26 (20-32) mmol/L BUN 13 11 (7-30) mg/dL Creatinine 0.5 0.5 (0.5-1.5) mg/dL Glucose 100 94 (60-115) mg/dL Calcium 9.5 9.0 (8.4-10.6) mg/dL Total Bilirubin 0.3 0.7 (0.1-1.5) mg/dL AST 21 21 (12-35) U/L ALT 18 18 (4-35) U/L Alkaline Phosphatase 48 51 (40-150) U/L Total Protein 7.5 7.2 (6.0-8.3) g/dL Albumin 4.5 4.2 (3.3-5.0) g/dL All other labs normal. Imaging Abdomen CT scan report/results: report reviewed and image reviewed Progress Note:A&P Assessment and plan (1) Abdominal pain: Status: Acute Plan Patient is a 52-year-old female with recurrent right lower quadrant abdominal pain. This is the patient's 2nd hospital stay in the last 2 weeks for persistent pain. A repeat CT scan during this hospital admission does show some decrease in the surrounding inflammation when compared to the scan from 09/29/2023 but persistent dilated appendix consistent with acute appendicitis. The presentation is atypical given the chronicity of her symptoms and lack of inflammatory markers. I discussed with the patient different treatment options including another period of observation versus diagnostic laparoscopy, possible appendectomy, possible conversion to open, possible ileocecectomy. At this time the patient does wish to proceed to the operating room. Risks and benefits of operative intervention were discussed at length with the patient. Risks included but was not limited to: Bleeding, infection, risk of damage to surrounding structures, possible need for additional procedures, possible need to convert to an open operation and postoperative complications such as pneumonia, pulmonary emboli or SD. All questions and concerns were addressed with the patient agreeing to proceed.
[2023-10-13] MEDS: LACTATED RINGERS 1000 ML 1,000 ML 100 ML IV ×2 (12:46→14:08)
[2023-10-13] MEDS: BUPIVACAINE 0.25% 30 ML INJECTION (13:19)
[2023-10-13] MEDS: METOCLOPRAMIDE HCL 5 MG/ML INJ 10 MG IVP (15:33)
--- NOTE | 2023-10-13 15:34 | W.ANESCHARGE ---
Anesthesia Charges Start Date/Time Anesthesia Start Date: 10/13/23 Anesthesia Start Time: 12:45 Stop Date/Time Anesthesia Stop Date: 10/13/23 Anesthesia Stop Time: 15:31
--- NOTE | 2023-10-13 16:23 | PM.GSPRC ---
Operative Note Date of procedure: 10/13/23 Pre-op diagnosis: chronic appendicitis Post-op diagnosis: chronic appendicitis Type of Procedure: laparoscopic appendectomy, modifier 22 secondary to difficulty Indications: Patient is a 52-year-old female who presented with recurrent, persistent right lower quadrant abdominal pain. CT imaging was obtained with findings consistent with acute appendicitis. Patient with a typical clinical presentation, no live a tabares and her inflammatory markers. Please see consultation note regarding full discussion and overview of different treatment options including observation versus surgical intervention. Risks and benefits of operative intervention were discussed at length with the patient. Risks included but was not limited to: Bleeding, infection, risk of damage to surrounding structures, possible need for additional procedures, possible need to convert to an open operation and postoperative complications such as pneumonia, pulmonary emboli or [place]. All questions and concerns were addressed with the patient agreeing to proceed. Procedure Description: After discussing the risks and benefits of the procedure, the patient signed informed consent.? The operative site was marked and the patient was brought to the operating room and placed on the operating table in supine position.? Care was taken to pad the patient's pressure points.?? The patient was then intubated by anesthesia.?? The operative site was then prepped and draped in the usual sterile fashion.? A time-out was then performed. Entrance to the abdomen was obtained via a 5 mm optical trocar in the left upper quadrant. The abdomen was insufflated and briefly surveyed for any signs of injury. There were none. A 12 mm port was placed lateral to the umbilicus as well as a 5 mm port in the left lower quadrant under direct vision. The abdomen was surveyed. The liver was healthy in appearance with no evidence of any masses or lesions. Omentum was healthy in appearance. There was evidence of a small hernia in the lower abdomen with omental adhesions to the anterior abdominal wall. The omental adhesions were taken down carefully with cautery. The patient was then placed in Trendelenburg position with the right side up. The right side of the colon had multiple adhesions along the right lateral wall. These were carefully dissected free with the Harmonic device, to allow for mobilization of the right side of the colon. The cecum was then able to be identified and followed into the patient's pelvis. The base of the appendix was edematous and inflamed. The body of the appendix was very fibrotic in nature and adherent to the surrounding terminal ileum, right lateral wall and right fallopian tube. The adhesions were very dense and difficult to dissect out. Using blunt dissection I was able to carefully create a window through the mesentery at the base of the appendix. A purple bowel load was used to transect the appendix at its base. The staple line was carefully inspected, appeared healthy, intact and hemostatic. Using upward traction on the body of the appendix I dissected free the mesoappendix with the Harmonic device. a 30 mm vascular load stapler was used to then transect the mesoappendix. The distal aspect and tip of the appendix remained adhered to the terminal ileum and right fallopian tube. The right fallopian tube was bluntly dissected free from the tip. The terminal ileum was sharply dissected free with a laparoscopic scissors from the body of the appendix. During dissection a small amount of fluid and mucus material was expelled. This was controlled with suction to minimize contamination. This appeared to be from a well-contained capsule adjacent to the body of the appendix and did not involve the wall of the appendix itself. Once the appendix was completely free from the small bowel and surrounding structures it was placed in an Endo-Catch bag and removed from the abdomen. The terminal ileum was carefully inspected. A small amount of fibrotic capsule was left on the anterior aspect of the terminal ileum with the bowel itself intact and no evidence of injury. The right lower quadrant was locally irrigated. Hemostasis was excellent at the end of the procedure. A piece of omentum was placed over the operative field in the right lower quadrant. The 12 mm port site was closed with 0 Vicryl suture. All other ports were removed under direct visualization. The skin was then closed with absorbable subcuticular suture. Sterile dressings were then applied. Instrument sponge and needle counts were correct at the end of the case. The patient was then woken and transported to the PACU in stable condition. Findings: chronic appendicitis Anesthesia: GETA Surgeon: Rose Barrientos MD Estimated blood loss (mL): 5 Specimen: Appendix Condition: stable Disposition: PACU
[2023-10-13] MEDS: ACETAMINOPHEN 325 MG TABLET 650 MG PO (18:53)
--- NOTE | 2023-10-13 21:37 | PC.NURSE ---
DISCHARGE: Pt tolerating activity, po intake and voiding without difficulty. denies N/V, pain controlled with prn tylenol. lap sites C/D/I. D/C with at 2100 via wheelchair to home. mild light leaded and dizziness at beginning of shift at 1900, resolved and gone by pt report at time of discharged.
--- NOTE | 2023-10-14 14:03 | P.DS_ITS ---
DS: Providers Provider Date Seen: 10/13/23 Primary care physician: Not a Local Provider Consults: 10/12/23 21:26 Consult to Physician [CONS] Routine Comment: Consulting Provider: Rose Barrientos Has provider been notified: Yes Attending Physician on discharge: Rose Barrientos MD DS: Summary Hospital Course Hospital Course: Patient was admitted for recurrent RLQ abdominal pain. Work up obtained with CT scan concerning for appendicitis. She was take to the operating room and underwent a laparoscopic appendectomy. Evidence of fibrotic appendix consistent with chronic appendicitis. She was discharged to home post op and was ambulating independently, tolerating pain with oral medication, voiding and tolerating a regular diet. Plan for follow up in surgery clinic in 2 weeks. Time Spent with Patient Time attestation: Total time spent providing and/or coordinating discharge services: Exam Narrative: Exam Narrative: See exam from same date. Const: Vital Signs, click to edit/add: Vital Signs - 24 hr 10/13/23 15:00 10/13/23 15:00 10/13/23 15:26 Temperature 97.6 F Pulse Rate 78 Respiratory Rate 16 14 Blood Pressure 113/69 Pulse Oximetry 100 96 Oxygen Delivery Al thod Room Air Room Air 10/13/23 15:30 10/13/23 15:35 10/13/23 15:40 Temperature Pulse Rate 74 75 77 Respiratory Rate 16 16 16 Blood Pressure 113/59 L 96/66 109/66 Pulse Oximetry 98 98 98 Oxygen Delivery Al thod Room Air Room Air Room Air 10/13/23 15:45 10/13/23 15:50 10/13/23 15:55 Temperature Pulse Rate 74 77 69 Respiratory Rate 16 16 16 Blood Pressure 108/64 111/60 116/69 Pulse Oximetry 98 99 99 Oxygen Delivery Al thod Room Air Room Air Room Air 10/13/23 16:00 10/13/23 16:15 10/13/23 16:28 Temperature 97.5 F L Pulse Rate 76 82 74 Respiratory Rate 16 14 Blood Pressure 115/68 115/72 110/66 Pulse Oximetry 98 98 99 Oxygen Delivery Al thod Room Air Room Air Room Air 10/13/23 16:30 10/13/23 16:45 10/13/23 17:00 Temperature 97.1 F L 97.1 F L Pulse Rate 79 76 74 Respiratory Rate 12 14 Blood Pressure 111/69 114/70 120/71 Pulse Oximetry 98 99 Oxygen Delivery Me thod Room Air Room Air Room Air 10/13/23 17:30 10/13/23 18:00 10/13/23 20:02 Temperature 99.0 F Pulse Rate 90 98 103 H Respiratory Rate 16 Blood Pressure 118/71 133/79 121/81 Pulse Oximetry 99 98 Oxygen Delivery Me thod Room Air Room Air Room Air 10/13/23 20:07 Temperature 98.9 F Pulse Rate 97 Respiratory Rate 16 Blood Pressure 132/77 Pulse Oximetry 98 Oxygen Delivery Me thod Room Air Discharge Plan Discharge Disposition: Home w/ Parent or Adult Discharging Surgeon: Rose Barrientos Follow-Up Appointment: 2 week follow up Prescriptions: New hydrocodone-acetaminophen 5-325 mg tablet 1 tab PO Q6H PRN (Reason: pain) Qty: 10 0RF senna 8.6 mg capsule 8.6 mg PO DAILY PRN (Reason: constipation) Qty: 90 0RF Continued epinephrine 0.3 mg/0.3 mL auto-injector 0.3 mg IM ONCE PRN progesterone micronized 200 mg capsule 200 mg PO QHS Qty: 30 0RF Rx Instructions: NEEDS ANNUAL VISIT FOR REFILLS - PLEASE CALL OFFICE TO SCHEDULE VISIT [phone] estradiol 0.1 mg/24 hr patch semiweekly 1 patch transdermal 2XW Qty: 24 0RF Rx Instructions: apply 1 patch for 3 days alternating with 1 patch for 4 days each week for 3 wks per 4-wk cycle Please call the [facility] at [phone] to schedule a medication check previous to requiring future refills. Thank you! Activity Level: No strenuous activity Activity Detail: Activity as tolerated. Avoid strenuous activity. No lifting greater than 20 lb for 2 weeks. Discharge Diet: Regular Patient Instructions: Hydrocodone/Acetaminophen (By mouth), Senna (By mouth), General Anesthesia (DC), Laparoscopic Appendectomy (DC), Post-Operative Instructions: Appendectomy Additional Instructions: You were prescribed a narcotic pain medication. In addition you may supplement with Tylenol and/or ibuprofen. Be sure to not exceed greater than 4 g of Tylenol in a 24 hour period. While on narcotic pain medicine please take stool softeners. A prescription of stool softeners has been sent to the pharmacy. Stop if having greater than 2 stools per day. You have Steri-Strips dressings in place, allowed these to follow-up on their own. Okay to shower starting tomorrow, do not soak in a bath or swim for 2 weeks. Follow-up with Dr. Barrientos in 2-3 weeks. Please call if you are experiencing severe pain, nausea, vomiting, difficulty urinating, fever or not had a bowel movement in 4 days after surgery. Follow-up: Rose Barrientos MD [Staff Physician] - 10/26/23 1:15 pm (At the [facility] and [facility].) Provider,Not a Local [Primary Care Provider] - Discharge Orders: Discharge Order (Routine); Ordered 10/13/23 Ordered By: Rose Barrientos
== END 2023-10-13 21:00 | disposition home or self-care (01) ==
LOC: ED 18:45 → MEDSURG 10-13 07:16 → ED 10-13 12:30 → SS 10-13 12:30
PROVIDERS: Internal Medicine; Emergency Provider Emergency Medicine; Visit Provider Surgery
PROC: 0DTJ4ZZ Resection of Appendix, Percutaneous Endoscopic Approach (ICD-10-PCS; CPT 44970; principal; 2023-10-13 12:30)
DX: K36 Other appendicitis (principal); R63.4 Abnormal weight loss; R10.31 Right lower quadrant pain; Z68.22 Body mass index [BMI] 22.0-22.9, adult
CPT/HCPCS: 44970; 00840; 36415; 74177; 80048; 80053; 80076; 81001; 81025; 83605; 83735; 84100; 84145; 85025; 85651; 86140; 88304; 99284; 99285; A9270; J0665; J1100; J1170; J2250; J2371; J2405; J2543; J2704; J2710; J2765; J3010; J7030; J7120; Q9967

== ENCOUNTER 2023-10-19 15:25 | Outpatient (CLI) | payer OTHER, SELFPAY | END 2023-10-19 15:26 | disposition home or self-care (01) | LOC: FRMREF 15:29 | PROVIDERS: Visit Provider Registered Nurse | DX: N91.2 Amenorrhea, unspecified (principal) | CPT/HCPCS: 83001 ==

== ENCOUNTER 2023-10-25 12:24 | Outpatient (CLI) | payer OTHER, SELFPAY ==
--- OUTSIDE RECORDS SUMMARY | 2023-10-27 07:33 | XMS_ITS | Clinical Summary ---
Author Name Unknown Organization [facility] Address [place], [place] [address] Care Team Providers Care Biostatistics Teacher Name Role Phone Nora Luo MD Primary Care Provider Allergies Active Allergy Reactions Criticality Noted Date Comments Venom-Honey Bee Anaphylaxis High 07/08/2017 Butorphanol Palpitations 01/25/2013 Benzonatate Other - Describe In Comment Field 01/22/2014 Lots of pimples on chest Medications Medication Sig Dispensed Refills Start Date End Date Status EPINEPHrine (EPIPEN) 0.3 mg/0.3 mL (1:1,000) injectionIndicatio ns:Bee sting allergy Inject 0.3 mg intramuscular one time if needed for Allergic Reaction. 1 Each 1 02/01/2013 Active estradiol 0.1 mg/24 hr (ESTRADERM; VIVELLE-DOT) patch APPLY 1 PATCH TRANSDERMAL TWICE WEEKLY 04/17/2021 Active progesterone micronized (PROMETRIUM) 200 mg capsule Take 200 mg by mouth. 06/17/2021 Active oxyCODONE (ROXICODONE) 5 mg immediate release tabletIndications: Hallux rigidus, left foot Take 1-2 Tablets (5-10 mg) by mouth every 4 hours if needed for Pain. 10 Tablet 08/08/2022 Active ketoconazole 2% shampoo (NIZORAL) 2 % shampooIndications :Seborrheic dermatitis Lather on damp face and behind ears, leave on for 3-5 minutes, then rinse with water. 120 mL 3 06/26/2023 Active Active Problems Problem Noted Date Diagnosed Date Bee sting allergy 01/25/2013 Encounters Date Type Department Care Team Description 10/20/2023 Lab Requisition [facility] [phone] Alba Saenz NP 10/16/2023 Lab Requisition [facility] [phone] Rose Barrientos MD 09/29/2023 Nurse Triage [facility] [address] [place] [address] Nora Luo MD Abdominal Pain 09/29/2023 Telephone [facility] [address] [place] [address] Nora Luo MD Error-please disregard (A user error has taken place: encounter opened in error, closed for administrative reasons/) from Last 3 Months Immunizations Name Administration Dates Next Due COVID-19 vaccine (Moderna 100mcg/0.5mL) PF, MDV 06/14/2021 DTaP 06/08/2008, 2,10/31/2000,2000,06/19/2000 HIB HbOC (HibTITER) 10/11/2001, 1,08/25/2000,1999 Hepatitis B (Peds) 10/31/2000,04/18/2000 Inactivated Polio Vaccine 06/08/2005,04/2001,08/25/2000,1999 Influenza A (H1N1), Inactiva gemma (Age >=3 Years) 06/01/2009 Influenza RIV4 (Age 18+ Year s) PRESERV FREE 05/30/2022 Influenza, IIV3 (Age >=3 years) 04/10/2014,06/23 Influenza, IIV4 06/08/2021 Influenza, IIV4 (=>6mos) MDV 05/04/2017,04/20/20 16,04/09/2015 Influenza, Live, Intranasal Laiv3 05/09/2012 Influenza,LAIV4 Live Intrana sada (Flumist) 05/01/2013 MMR 06/08/2005,05/19/2001 Pneumococcal conj 7-Valent ( Prevnar 7) 07/06/2001,10/31/2000,08/25/2000,1999 Rubella 05/19/2000 Tdap 01/25/2013 Varicella Vaccine 04/18/2001 Family History Medical History Relation Name Comments Cancer Father lymphoma Cancer-breast Maternal Aunt Anesthesia Problem No Family History Blood Disease No Family History Relation Name Status Comments Father Maternal Aunt Social History Tobacco Use Types Packs/Day Years Used Date Smoking Tobacco: Never Smokeless Tobacco: Never Tobacco Cessation:Counseling Given: Yes Alcohol Use Standard Drinks/Week Comments Yes 0 (1 standard drink = 0.6 oz pur e alcohol) 1-2 drinks per week Social Connections Answer Date Recorded Frequency of Communication with Friends and Fami ly Not on file 07/01/2021 Financial Resource Strain Answer Date R ecorded Difficulty of Paying Living Expenses Not on file 07/01/2021 Difficulty of Paying Living Expenses Not on file 07/01/2021 Sex and Gender Information Value Date Recorded Sex Assigned at Not on file Gender Identity Not on file Sexual Orientation Not on file Obstetrics History Last Filed Vital Signs Vital Sign Reading Time Taken Comments Blood Pressure 137/84 08/24/2022 2:23 PM [employer] CH[employer] Pulse 83 08/24/2022 2:23 PM [employer] Temperature 36.9 ??C (98.5 ??F) 08/10/2022 2:34 PM CS T Respiratory Rate - - Oxygen Saturation 96% 08/24/2022 2:23 PM [employer] Inhaled Oxygen Concentration - - Weight 59.9 kg (132 lb) 08/24/2022 2:23 PM [employer] CH[employer] Height 162.6 cm (5' 4) 07/25/2022 7:59 AM [employer] Body Mass Index 22.66 07/25/2022 7:59 AM L[employer] CHANNELER Plan of Treatment Health Maintenance Due Date Last Done Comments Depression screening for age 12+ 11/16/2016 11/17/2015 Zoster (shingles) series for age 50+ (1 of 2) 12/11/2019 Fecal testing sDNA-FIT (Cologuard) for age 45-75 07/24/2022 07/24/2019 (Completed outside of [facility]) Mammogram for age 45-75 08/08/2022 08/08/19 22 (Completed outside of [facility]), 02/06/2016 Tetanus booster 01/25/2023 01/25/2013 BMI (ht and wt on same day) for age 18+ 07/25/2023 07/25/2022, 09/22/2021, 12/03/2020, Additional history exists Influenza for age 50-64 03/10/2024 05/30/20 22, 06/08/2021, 05/04/2017, Additional history exists Pap test for age 21-65 10/18/2026 , 05/24/2020 ([facility] 06/05/2018, Additional history exists Lipids for age 45-75 07/25/2027 07/25/2022 Pneumococcal series for age 6-64 Aged Out 07/06/2001, 10/31/2000, 08/25/2000, Additional history exists No longer eligible based on patient's age to complete this topic Tdap Completed 01/25/2013 HIV for age 15-65 Completed 07/25/2022 Hepatitis C screening for age 18-79 Completed 07/25/2022 COVID-19 vaccine series Completed 04/13/20, 04/20/2022, 06/14/2021, Additional history exists Procedures Procedure Name Priority Date/Time Associated Diagnosis Comments LAB TRACKING EVENT Routine 10/19/2023 3: 30 PM CDT HPV THIN PREP Routine 10/19/2023 3:30 PM CDT LAB TRACKING EVENT Routine 10/13/2023 2: 55 PM CDT PATH TISSUE EXAM Routine 10/13/2023 2:55 PM CDT LC HIV-1/O/2, 4TH GENERATION Routine 07/25/2022 8:55 AM [employer] Screening for HIV (human immunodeficiency virus) LC HCV ANTIBODY RFX TO QUANT PCR Routine 07/25/2022 8:55 AM [employer] CH[employer] Need for hepatitis C screening test LC LIPID PANEL AND CHOL/HDL RATIO Routine 07/25/2022 8:55 AM L[employer] CH[employer]ER Lipid screening Screening for lipid disorders from Last 3 Months or Most Recently Relevant to Health Maintenance Results * LAB TRACKING EVENT (10/19/2023 3:30 PM CDT) Only the most recent of2 resultswithin the time period is included. Other (Other) Client Collect / Unknown 10/19/2023 3:30 PM CDT 10/20/2023 6:16 PM CDT Alba Saenz NP LAB BILL ONLY Performing Organization Address [facility] de Phone Number [facility] [address] * HPV HIGH RISK (10/19/2023 3:30 PM CDT) TYPE 16 Negative Negative 10/24/2023 1:15 PM CDT [facility] TYPE 18 Negative Negative 10/24/2023 1:15 PM CDT [facility] OTHER HIGH RISK TYPES Negative Negative 10/24/2023 1:15 PM CDT [facility] Other (Cervical) 10/19/2023 3:30 PM CDT 10/23/2023 9:26 AM CDT Narrative [facility] - 10/24/2023 1:15 PM CDT HPV types 16, 18, 31, 33, 35, 39, 45, 51, 52, 56, 58, 59, 66 and 68 DNA were undetectable or below the pre-set threshold. Methodology: Vee Nnamdi 4800 HPV Test Alba Saenz NP MICROBIOLOGY Performing Organization Address [facility] de Phone Number [facility] [address] * PATH TISSUE EXAM (10/13/2023 2:55 PM CDT) Case Report Pathology Report ?Case: [id number] ? Authorizing Provider: ??Rose Barrientos MD ??Collected: ? 10/13/2023 1455 ? Ordering Location: ? [facility] ?Received: ?10/16/2023 1423 ? Pathologist: ? Madelyn Fisher, ? Specimen: ?Appendix ? 10/18/2023 1:26 PM CDT [facility] Final Diagnosis A) APPENDIX, APPENDECTOMY: 1. 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 Negative for high grade dysplasia or invasive carcinoma 3. Proximal resection margin is negative for dysplasia 4. Background appendix with fibrosis, appendiceal diverticulum, and small organizing mural abscess 10/18/2023 1:26 PM CDT [facility] Comment Given that the proximal appendiceal margin is negative for involvement, this patient should be considered as being adequately treated by appendectomy. Case seen with Dr. Friedman, who interpreted the additional tissue sections. Dr. Friedman left a voicemail with Dr. Barrientos on 10/18/2023 at 1:23 PM. 10/18/2023 1:26 PM CDT [facility] Clinical Information Ms. Shabazz is a 52 y.o. who underwent appendectomy. No additional clinical information is available. 10/18/2023 1:26 PM CDT [facility] Gross Description A) Received in formalin, labeled with the patient's name and Appendix, is a 7.1 cm long appendix with an average diameter of 1.4 cm, with attached mesoappendix. The serosa is dusky chavez-purple and disrupted. The wall averages 0.6 cm. The mucosa is purple-red to chavez and fibrous. ??A possible perforation is identified. ??A discrete mass or fecalith is not identified. Clam Grader sections including the en face margin (inked black) are submitted in 3 cassettes. EKW 10/16/2023 The remainder of the appendix is entirely submitted in cassettes A4-A10. EKW 10/17/2023 10/18/2023 1:26 PM CDT [facility] Microscopic Description The final diagnosis is based on microscopic examination of appropriate sections of all specimens. 10/18/2023 1:26 PM CDT [facility] Additional Information Interpreted at [facility] - [address] [place] [id number] 10/18/2023 1:26 PM CDT [facility] Other APPENDIX SPECIMEN / Unknown 10/13/2023 2:55 PM CDT 10/16/2023 2:23 PM CDT Rose Barrientos MD PATHOLOGY/[facility]O G[facility] [address] [place] [address], * LC LIPID PANEL AND CHOL/HDL RATIO (07/25/2022 8:55 AM L[employer] CH[employer]ER) Cholesterol, Total 144 100 - 199 mg/dL 07/29/2022 1:08 AM [facility] Triglycerides 98 0 - 149 mg/dL 07/29/2022 1:08 AM [facility] HDL Cholesterol 57 >39 mg/dL 3 1:08 AM [facility] VLDL Cholesterol Devante 18 5 - 40 mg/dL 07/29/2022 1:08 AM [facility] ([facility]) LDL Chol Calc ([facility]) 69 0 - 99 mg/dL 07/29/2022 1:08 AM [facility] T. Chol/HDL Ratio 2.5 0.0 - 4.4 ratio 07/29/2022 1:08 AM [employer] CH[employer] [facility] ([facility]) Comment: ?T. Chol/HDL Ratio ?Men ??Women ?1/2 Avg.Risk ??3.4 ?3.3 ?Avg.Risk ??5.0 ?4.4 ? 2X Avg.Risk ??9.6 ?7.1 ? 3X Avg.Risk 23.4 ?? 11.0 Blood BLOOD SPECIMEN / Unknown Venipuncture / Unknown 07/25/2022 8:55 AM [employer] CH[employer]ER 07/25/2022 9:01 AM [employer] CH[employer]ER Narrative [facility] ([facility]) - 07/29/2022 1:08 AM L[employer] ST[employer] CH[employer]ER Performed at: ??01 - [facility] [place] [address] [place] [address], [place], [place] ??[id number] Certified Corporate Travel Executive: Bradford Grove MD, Phone: ??[phone] Nora Luo MD SEND OUTS Performing Organization Address City/State/[facility] de Phone Number [facility] ([facility]) [address] [place] [address], * HCV ANTIBODY RFX TO QUANT PCR (07/25/2022 8:55 AM LOCK STITCH CHANNELER) Pathologist [facility] HCV Ab <0.1 0.0 - 0.9 s/co ratio 07/27/2022 9:[address] [facility] ([facility]) Blood BLOOD SPECIMEN / Unknown Venipuncture / Unknown 07/25/2022 8:55 AM LOCK STITCH CHANNELER 07/25/2022 9:01 AM [employer] STITCH CH[employer]ER [facility] ([facility]) - 07/27/2022 9:06 PM LOCK STITCH CHANNELER Performed at: ??01 - [address] ??[id number] Certified Corporate Travel Executive: Bradford Grove MD, Phone: ??[phone] Nora Luo MD LABORATORY Performing Organization Address [facility] Co de Phone Number [facility] ([facility]) [address] [place] [address], * HIV-1/O/2, 4TH GENERATION (07/25/2022 8:55 AM LOCK STITCH CHANNELER) [facility] HIV Scr 4th Gen Non Reactive Non Reactive 07/27/2022 9:[address] [facility] ([facility]) Comment: HIV Negative HIV-1/HIV-2 antibodies and HIV-1 p24 antigen were NOT detected. There is no laboratory evidence of HIV infection. Blood BLOOD SPECIMEN / Unknown Venipuncture / Unknown 07/25/2022 8:55 AM L[employer] STITCH CHANNELER 07/25/2022 9:01 AM L[employer] STITCH CHANNEL[employer] Narrative [facility] ([facility]) - 07/27/2022 9:06 PM LOCK STITCH CHANNELER Performed at: ??[address] ??[id number] Certified Corporate Travel Executive: Bradford Grove MD, Phone: ??[phone] Nora Luo MD LABORATORY [facility] ([facility]) [facility] [place] [address], from Last 3 Months or Most Recently Relevant to Health Maintenance Care Teams Biostatistics Teacher Relationship Specialty Start Date End Date Nora Luo MD [address] [place] [address] PCP - General Family Practice 01/09/13
== END 2023-10-25 12:25 | disposition home or self-care (01) ==
LOC: NFLDREF 10-27 07:30
PROVIDERS: Visit Provider Obstetrics & Gynecology
DX: Z13.29 Encounter for screening for other suspected endocrine disorder (principal); N92.6 Irregular menstruation, unspecified
CPT/HCPCS: 84443

== ENCOUNTER 2023-12-25 09:55 | Outpatient (CLI) | payer OTHER, SELFPAY ==
--- OUTSIDE RECORDS SUMMARY | 2023-12-25 09:57 | XMS_ITS | Clinical Summary ---
Author Organization [facility] s & [facility] Address [place], [place] [address] Care Team Providers Care Formula Weigher Name Role Phone Nora Luo MD Primary Care Provider Allergies Active Allergy Reactions Criticality Noted Date Comments Venom-Honey Bee Anaphylaxis High 07/08/2017 Butorphanol Palpitations 01/25/2013 Benzonatate Other - Describe In Comment Field 01/22/2014 Lots of pimples on chest Medications Medication Sig Dispensed Refills Start Date End Date Status EPINEPHrine (EPIPEN) 0.3 mg/0.3 mL (1:1,000) injectionIndication s:Bee sting allergy Inject 0.3 mg intramuscular one time if needed for Allergic Reaction. 1 Each 1 02/01/2013 Active estradiol 0.1 mg/24 hr (ESTRADERM; VIVELLE-DOT) patch APPLY 1 PATCH TRANSDERMAL TWICE WEEKLY 04/17/2021 Active progesterone micronized (PROMETRIUM) 200 mg capsule Take 200 mg by mouth. 06/17/2021 Act j carlos multivit,thx,calciu m,iron,mins (MULTIVITAMIN AND MINERAL ORAL) Take by mouth. Active Active Problems Problem Noted Date Diagnosed Date Bee sting allergy 01/25/2013 Encounters Date Type Department Care Team Description 10/31/2023 11:20 AM CDT Office Visit [facility] [place] [address] [place] [address] Perri Enrique MD Arm Pain/problem (Pain in left upper arm since Tetanus shot on 10/19/2023.) 10/31/2023 Travel 10/30/2023 Nurse Triage [facility] [address] [place] [address] Nora Luo MD Arm Pain/problem 10/20/2023 Lab Requisition [facility] [phone] Alba Saenz NP 10/16/2023 Lab Requisition [facility] [phone] Rose Barrientos MD 09/29/2023 Nurse Triage [facility] [address] [place] [address] Nora Luo MD Abdominal Pain 09/29/2023 Telephone [facility] [address] [place] [address] Nora Luo MD Error-please disregard (A user [...] IIV3 (Age >=3 years) 04/10/2014,06/23 Influenza, IIV4 04/13/2023,06/08/2021,06/01/2009 Influenza, IIV4 (=>6mos) MDV 05/04/2017,04/20/20 16,04/09/2015 Influenza, Live, Intranasal Laiv3 05/09/2012 Influenza,LAIV4 Live Intrana sada (Flumist) 05/01/2013 MMR 06/08/2005,05/19/2001 Pneumococcal conj 7-Valent ( Prevnar 7) 07/06/2001,10/31/2000,08/25/2000,1999 Rubella 05/19/2000 Td (Age >=7 Years) 10/19/2023 Tdap 01/25/2013 Varicella Vaccine 04/18/2001 Family History [...] Sign Reading Time Taken Comments Blood Pressure 122/80 10/31/2023 11:29 AM CDT Pulse 82 10/31/2023 11:29 AM CDT Temperature 37.1 ??C (98.8 ??F) 10/31/2023 11:29 AM C DT Respiratory Rate - - Oxygen Saturation 99% 10/31/2023 11:29 AM CDT Inhaled Oxygen Concentration - - Weight 58.6 kg (129 lb 3.2 oz) 10/31/2023 11:29 AM CDT Height 160 cm (5' 3) 10/31/2023 11:29 AM CDT Body Mass Index 22.89 10/31/2023 11:29 AM CDT Plan of Treatment Health Maintenance Due Date Last Done Comments Depression screening for age 12+ 11/16/2016 11/17/2015 Zoster (shingles) series for age 50+ (1 of 2) 12/11/2019 Fecal testing sDNA-FIT (Cologuard) for age 45-75 07/24/2022 07/24/2019 (Completed outside of [facility]) Mammogram for age 45-75 08/08/2022 08/08/19 22 (Completed outside of [facility]), 02/06/2016 Influenza for age 50-64 03/10/2024 04/13/20, 05/30/2022, 06/08/2021, Additional history exists BMI (ht and wt on same day) for age 18+ 10/30/2024 10/31/2023, 07/25/2022, 09/22/2021, Additional history exists Pap test for age 21-65 10/18/2026 , 10/19/2023, 05/24/2020 (Completed outside of [facility]), Additional history exists Lipids for age 45-75 07/25/2027 07/25/2022 Tetanus booster 10/18/2033 10/19/2023, 01/25/2013 Pneumococcal series for age 6-64 Aged Out [...] EVENT Routine 10/19/2023 3: 30 PM CDT HUB CUTTER APPRENTICE THIN PREP PAP SCREEN IMAGED Routine 10/19/2023 3:30 PM CDT HPV THIN PREP Routine 10/19/2023 3:30 PM CDT LAB TRACKING EVENT Routine 10/13/2023 2: 55 PM CDT PATH TISSUE EXAM Routine 10/13/2023 2:55 PM CDT LC HIV-1/O/2, 4TH GENERATION Routine 07/25/2022 8:55 AM ORACLE EBS DEVELOPER Screening for HIV (human immunodeficiency virus) LC HCV ANTIBODY RFX TO QUANT PCR Routine 07/25/2022 8:55 AM ORACLE EBS DEVELOPER Need for hepatitis C screening test LC LIPID PANEL AND CHOL/HDL RATIO Routine 07/25/2022 8:55 AM ORACLE EBS DEVELOPER Lipid screening Screening for lipid disorders from Last 3 Months or Most Recently Relevant to Health Maintenance Results * LAB TRACKING EVENT (10/19/2023 3:30 PM CDT) Only the most recent of2 resultswithin the time period is included. Other (Other) Client Collect / Unknown 10/19/2023 3:30 PM CDT 10/20/2023 6:16 PM CDT Alba Saenz NP LAB BILL ONLY [facility] [address] [place] [address], * HUB CUTTER APPRENTICE THIN PREP PAP SCREEN IMAGED (10/19/2023 3:30 PM CDT) Case Report Gynecologic Cytology Report ? Case: [id number] ? Authorizing Provider: ??Alba Saenz NP ?? Collected: ? 10/19/2023 1530 ? Ordering Location: ? [facility] ?Received: ?10/23/2023 0926 ? First Screen: ?Maria Del Carmen Patel ? Specimen: ?HUB CUTTER APPRENTICE ThinPrep Vial Screening, Cervical ? 10/31/2023 6:10 PM CDT [facility] INTERPRETATION/ RESULT NEGATIVE FOR INTRAEPITHELIAL LESION OR MALIGNANCY (NIL) (none) 10/31/2023 6:10 PM CDT [facility] IMEN ADEQUACY Satisfactory for evaluation Endocervical component present 10/31/2023 6:10 PM CDT [facility] HPV REQUEST HPV and PAP 10/31/2023 6:10 PM CDT [facility] Last Pap Date 06/05/2018 10/31/2023 6:10 PM CDT [facility] Last Pap Result NIL 6:10 PM CDT [facility] Abnormal Pap or Neodesha Bx in last 5 years No 10/31/2023 6:10 PM CDT [facility] Menstrual Status Postmenopausal 10/31/2023 6:10 PM CDT [facility] Neodesha Bx Done Today No 10/31/2023 6:10 PM CDT [facility] Additional Information 10/31/2023 6:10 PM CDT [facility] Comment: Interpreted at [facility] Central Laboratory - [address], [place] [address] Automated Review Successful 10/31/2023 6:10 PM CDT [facility] Comment:Specimen processed s uccessfully by automated salvage supervisor device, ThinPrep Imaging System, [employer] ANCILLARY TESTING HUB CUTTER APPRENTICE HPV Ordered, Please see separate report 10/31/2023 6:10 PM CDT [facility] Note The pap test is a screening technique, not a diagnostic procedure. It is used primarily to screen for squamous cancers and precursor lesions. Published studies have shown that it is subject to both false negative and false positive results. The pap test should not be used as the sole means to diagnose or exclude pre-malignant and malignant lesions. 10/31/2023 6:10 PM CDT [facility] Other (Cervical) 10/19/2023 3:30 PM CDT 10/23/2023 9:26 AM CDT Alba Saenz NP PATHOLOGY/CYTOLOG Y Performing Organization Address [facility] de Phone Number [facility] [address] [place] [address], * HPV HIGH RISK (10/19/2023 3:30 PM CDT) TYPE 16 Negative Negative 10/24/2023 1:15 PM CDT [facility] TYPE 18 Negative Negative 10/24/2023 1:15 PM CDT [facility] OTHER HIGH RISK TYPES Negative Negative 10/24/2023 1:15 PM CDT [facility] Other (Cervical) 10/19/2023 3:30 PM CDT 10/23/2023 9:26 AM CDT Narrative [facility] - 10/24/2023 1:15 PM CDT HPV types 16, 18, 31, 33, 35, 39, 45, 51, 52, 56, 58, 59, 66 and 68 DNA were undetectable or below the pre-set threshold. Methodology: Vee Nnamdi 4800 HPV Test Alba Saenz NP MICROBIOLOGY Performing Organization Address [facility] de Phone Number [facility] [address] [place] [address] * PATH TISSUE EXAM (10/13/2023 2:55 PM CDT) Case Report Pathology Report ?Case: [id number] ? Authorizing Provider: ??Rose Barrientos MD ??Collected: ? 10/13/2023 1455 ? Ordering Location: ? [facility] ?Received: ?10/16/2023 1423 ? Pathologist: ? Madelyn Fisher, ? Specimen: ?Appendix ? 10/18/2023 1:26 PM CDT [facility] Final Diagnosis A) APPENDIX, APPENDECTOMY: 1. 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 Negative for high grade dysplasia or invasive carcinoma 3. Proximal resection margin is negative for dysplasia 4. Background appendix with fibrosis, appendiceal diverticulum, and small organizing mural abscess 10/18/2023 1:26 PM CDT [facility] Comment Given that the proximal appendiceal margin is negative for involvement, this patient should be considered as being adequately treated by appendectomy. Case seen with Dr. Friedman, who interpreted the additional tissue sections. Dr. Friedman left a voicemail with Dr. Barrientos on 10/18/2023 at 1:23 PM. 10/18/2023 1:26 PM CDT [facility] Clinical Information Ms. Shabazz is a 52 y.o. who underwent appendectomy. No additional clinical information is available. 10/18/2023 1:26 PM CDT [facility] Gross Description A) Received in formalin, labeled with the patient's name and Appendix, is a 7.1 cm long appendix with an average diameter of 1.4 cm, with attached mesoappendix. The serosa is dusky chavez-purple and disrupted. The wall averages 0.6 cm. The mucosa is purple-red to chavez and fibrous. ??A possible perforation is identified. ??A discrete mass or fecalith is not identified. Fishery Biologist sections including the en face margin (inked black) are submitted in 3 cassettes. EKW 10/16/2023 The remainder of the appendix is entirely submitted in cassettes A4-A10. EKW 10/17/2023 10/18/2023 1:26 PM CDT [facility] Microscopic Description The final diagnosis is based on microscopic examination of appropriate sections of all specimens. 10/18/2023 1:26 PM CDT [facility] Additional Information Interpreted at [facility] - [address] [place] [id number] 10/18/2023 1:26 PM CDT [facility] Other APPENDIX SPECIMEN / Unknown 10/13/2023 2:55 PM CDT 10/16/2023 2:23 PM CDT Rose Barrientos MD PATHOLOGY/CYTOLO GY [facility] [address] [place] [address], * LC LIPID PANEL AND CHOL/HDL RATIO (07/25/2022 8:55 AM ORACLE EBS DEVELOPER) Cholesterol, Total 144 100 - 199 mg/dL 07/29/2022 1:08 AM [facility] Triglycerides 98 0 - 149 mg/dL 07/29/2022 1:08 AM ORACLE EBS DEVELOPER [facility]) HDL Cholesterol 57 >39 mg/dL 1:08 AM [facility] ([facility]) VLDL Cholesterol Devante 18 5 - 40 mg/dL 07/29/2022 1:08 AM [facility] TEST[facility] ([facility]) LDL Chol Calc ([facility]) 69 0 - 99 mg/dL 07/29/2022 1:08 AM [facility] TEST[facility] ([facility]) T. Chol/HDL Ratio 2.5 0.0 - 4.4 ratio 07/29/2022 1:08 AM FOR [facility]IC TESTING ([facility]) Comment: ?T. Chol/HDL Ratio ?Men ??Women ?1/2 Avg.Risk ??3.4 ?3.3 ?Avg.Risk ??5.0 ?4.4 ? 2X Avg.Risk ??9.6 ?7.1 ? 3X Avg.Risk 23.4 ?? 11.0 Blood BLOOD SPECIMEN / Unknown Venipuncture / Unknown 07/25/2022 8:55 AM ORACLE EBS DEVELOPER 07/25/2022 9:[address] [facility] FOR ESOTERIC TESTING ([facility]) - 07/29/2022 1:08 AM ORACLE EBS DEVELOPER Performed at: ??01 - [facility] [address] ??[id number] Metal Treater: Bradford Grove MD, Phone: ??[phone] Nora Luo MD SEND OUTS Performing Organization Address [facility] Co de Phone Number [facility] ([facility]) [address] [place] [address], * HCV ANTIBODY RFX TO QUANT PCR (07/25/2022 8:55 AM ORACLE EBS DEVELOPER) [facility] HCV Ab <0.1 0.0 - 0.9 s/co ratio 07/27/2022 9:06 PM ORACLE EBS DEVELOPER [facility] ESOTERIC TEST[facility] ([facility]) Blood BLOOD SPECIMEN / Unknown Venipuncture / Unknown 07/25/2022 8:55 AM ORACLE EBS DEVELOPER 07/25/2022 9:01 AM ORACLE EBS DEVELOPER Narrative [facility]IC TEST[facility] ([facility]) - 07/27/2022 9:06 PM ORACLE EBS DEVELOPER Performed at: ??01 - [address] ??[id number] Metal Treater: Bradford Grove MD, Phone: ??[phone] Nora Luo MD LABORATORY Performing Organization Address [facility] de Phone Number [facility]IC TEST[facility] ([facility]) [address] [place] [address], * HIV-1/O/2, 4TH GENERATION (07/25/2022 8:55 AM ORACLE EBS DEVELOPER) [facility] HIV Scr 4th Gen Non Reactive Non Reactive 07/27/2022 9:06 PM ORACLE EBS DEVELOPER [facility]IC TEST[facility] ([facility]) Comment: HIV Negative HIV-1/HIV-2 antibodies and HIV-1 p24 antigen were NOT detected. There is no laboratory evidence of HIV infection. Blood BLOOD SPECIMEN / Unknown Venipuncture / Unknown 07/25/2022 8:55 AM ORACLE EBS DEVELOPER 07/25/2022 9:01 AM ORACLE EBS DEVELOPER Narrative [facility] ([facility]) - 07/27/2022 9:06 PM ORACLE EBS DEVELOPER Performed at: ??01 - [facility] [address] [place] [address] ??[id number] Metal Treater: Bradford Grove MD, Phone: ??[phone] Nora Luo MD LABORATORY [facility] ([facility]) [facility] [address] from Last 3 Months or Most Recently Relevant to Health Maintenance Care Teams Formula Weigher Relationship Specialty Start Date End Date Nora Luo MD [address] [place] [address] PCP - General Family Practice 01/09/13
--- NOTE | 2023-12-25 11:34 | W.ANESCHARGE ---
Anesthesia Charges Start Date/Time Anesthesia Start Date: 12/25/23 Anesthesia Start Time: 10:46 Stop Date/Time Anesthesia Stop Date: 12/25/23 Anesthesia Stop Time: 11:30
--- NOTE | 2023-12-25 12:44 | W.ANESCHARGE ---
Anesthesia Charges Start Date/Time Anesthesia Start Date: 12/25/23 Anesthesia Start Time: 10:46 Stop Date/Time Anesthesia Stop Date: 12/25/23 Anesthesia Stop Time: 11:30
== END 2023-12-25 09:56 | disposition home or self-care (01) ==
LOC: OP CLINIC 09:55
PROVIDERS: Visit Provider Surgery
DX: Z12.11 Encounter for screening for malignant neoplasm of colon (principal); K63.5 Polyp of colon; K62.1 Rectal polyp; K57.30 Diverticulosis of large intestine without perforation or abscess without bleeding; Z86.010 Personal history of colon polyps
CPT/HCPCS: 00811; 45385; 88305; J2704

== ENCOUNTER 2024-11-11 08:56 | Outpatient (CLI) | payer OTHER, SELFPAY ==
--- NOTE | 2024-11-11 09:15 | CRLHL7_ITS ---
For Patients: As a result of the Century Cures Act, medical imaging exams and procedure reports are released immediately into your electronic medical record. You may view this report before your referring provider. If you have questions, please contact your health care provider. INDICATION: BILATERAL SCREENING MAMMOGRAM, ASYMPTOMATIC 53 Y/O FEMALE COMPARISON: 09/29/23, 08/05/22, 07/22/21 TECHNIQUE: CC and MLO views were obtained. These mammographic images have been obtained using full-field digital technique. These mammographic images were interpreted with the benefit of computer aided detection and tomosynthesis. BREAST COMPOSITION: The breasts are heterogeneously dense, which may obscure small masses. FINDINGS: No suspicious findings. ASSESSMENT: BI-RADS 1 Negative RECOMMENDATION: Annual screening mammogram. A lay language report of this examination will be provided to the patient. Dictated by: Adam Tenorio MD @ 11/12/2024 10:45:14 (Electronically Signed)
== END 2024-11-11 08:57 | disposition home or self-care (01) ==
LOC: MAMMO 08:57
PROVIDERS: Visit Provider Obstetrics & Gynecology
DX: Z12.31 Encounter for screening mammogram for malignant neoplasm of breast (principal); R92.333 Mammographic heterogeneous density, bilateral breasts
CPT/HCPCS: 77063; 77067

== ENCOUNTER 2025-01-31 08:43 | Outpatient (CLI) | payer OTHER, SELFPAY | END 2025-01-31 08:44 | disposition home or self-care (01) | LOC: NFLDREF 02-01 19:31 | PROVIDERS: Visit Provider Obstetrics & Gynecology | DX: F52.0 Hypoactive sexual desire disorder (principal); Z13.6 Encounter for screening for cardiovascular disorders | CPT/HCPCS: 80061; 84270; 84402; 84403; 84443 ==